=== PATIENT | male | born 1945 | race Caucasian/White ===

== ENCOUNTER 2018-10-14 17:06 | Inpatient (IN) ==
--- NOTE | 2018-10-14 17:48 | XRay Report ---
XR chest 1V portable CLINICAL HISTORY: Chest Pain chest pain COMPARISON STUDY: 03/05/2018 FINDINGS: Moderate cardiomegaly. Prominent pulmonary vasculature. Mild bibasilar parenchymal infiltra tive changes versus components of congestive failure. IMPRESSION: Congestive heart failure. Prominent basilar pulmonary vasculature versus basilar infiltr ative change. The above report was generated using voice recognition software. It may contain grammatical, syntax or spelling errors. Electronically signed by: Jose Deutsch M.D. 10/14/2018 5:46 PM
[2018-10-14] MEDS ORDERED: FUROSEMIDE 40 MG/4 ML VIAL IV STA (17:55)
[2018-10-14 18:17] LABS: iSTAT Creatinine 1.2 mg/dl (0.6-1.3); iSTAT Hemoglobin 9.2 g/dl (14.0-18.0); iSTAT Ionized Calcium 1.15 mmol/l (1.12-1.32); iSTAT Potassium 4.1 mEq/L (3.3-5.0)
[2018-10-14 18:27] LABS: Albumin Level 3.2 gm/dl (3.4-5.0); BUN Creatinine Ratio 16.9 (10-20); Calcium 8.4 mg/dl (8.5-10.1); Est GFR (African American) 67.6; Est GFR (Non-African American) 58.3; Magnesium 2.4 mg/dl (1.8-2.4); Potassium 3.9 mmol/L (3.5-5.1)
[2018-10-14 18:32] LABS: Bilirubin,Total 0.4 mg/dl (0.2-1); Globulin 3.1 gm/dl (2.5-4.0); Total Protein 6.3 gm/dl (6.4-8.2); Troponin I 0.025 ng/ml (0-0.045)
[2018-10-14 19:32] LABS: Base Excess VBG 9.3 mEq/L; HCO3 VBG 37 mmol/L; PCO2 VBG 71 mmHg (38-50); PO2 VBG 22 mmHg; pH VBG 7.34 (7.36-7.41)
[2018-10-14 19:33] LABS: Oxygen Saturation VBG < 60.0 %
[2018-10-14 19:36] LABS: Hematocrit (blood only) 30.7 % (42-52); Hemoglobin 8.2 g/dL (14.0-18.0); Mean Corpuscular Hgb Conc 26.7 g/dL (32-36); Mean Corpuscular Volume 101.3 fL (80-100); Mean Platelet Volume 10.3 fL (7.4-10.4); Platelet Count 347 K/uL (130-400); RDW Coefficient of Variation 15.4 % (11.5-14.5); RDW Standard Deviation 56.1 fL (36.4-46.3); Red Blood Count 3.03 M/uL (4.7-6.1); White Blood Count 9.65 K/uL (4.8-10.8)
[2018-10-14 19:36] LABS: Basophils # (auto) 0.03 K/uL (0-0.2); Basophils % (auto) 0.3 %; Eosinophils # (auto) 0.11 K/uL (0-0.5); Eosinophils % (auto) 0.9 %; Hematocrit (blood only) 33.1 % (42-52); Hemoglobin 8.8 g/dL (14.0-18.0); Hypochromasia Present; Immature Granulocytes # (auto) 0.03 K/uL (0.00-0.02); Immature Granulocytes % (auto) 0.3 %; Lymphocytes % (auto) 14.2 %; Mean Corpuscular Hgb Conc 26.6 g/dL (32-36); Mean Corpuscular Volume 103.4 fL (80-100); Monocytes # (auto) 1.17 K/uL (0.11-0.59); Monocytes % (auto) 9.8 %; Neutrophils # (auto) 8.96 K/uL (1.4-6.5); Neutrophils % (auto) 74.5 %; Ovalocytes 1+; Platelet Count 404 K/uL (130-400); Polychromasia 1+
[2018-10-14] MEDS ORDERED: ALBUT/IPRATROP 3MG/0.5MG NEB 3 ML VIAL NEB STA (19:52)
--- NOTE | 2018-10-14 20:04 | Emergency Department Note ---
Entered by Rodger Levine acting as a scribe for Ramsey Daigle MD History of Present Illness General Chief complaint: Illness Stated complaint: EDEMA LEGS Time Seen by Provider: 10/14/18 17:17 Source: patient and family History of Present Illness Onset (ago): week(s) 1 Location: lower extremity Pain Consistency: + other (worsening) Quality: + other (leg swelling) Exacerbated By: + other (shortness of breath worsened by lying down) Associated symptoms: + shortness of breath and + other (leg weeping); no fever/ chills and no nausea/vomiting The patient is a 73 year old white male with a history of COPD, lymphedema, HLD , HTN, and SVT who presents to the Emergency Room with complaints of worsened leg swelling for the past week. The patient reports chronic lymphedema but states that it has been increasing this week with some weeping. He denies changes in his chronic shortness of breath, although family notes that he has been sleeping in a recliner since he becomes increasingly short of breath when lying flat. He denies nausea, vomiting, fevers, chills, or urinary symptoms. He states that he chronically wears oxygen, but he is unsure if it is two or four liters. He states that he takes diuretics. Home Medications Home Medications Medication Instructions Recorded Confirmed Type albuterol sulfate 3 ml CONTINUOUS NEBULIZATION Q4H 10/14/18 10/14/18 History PRN aspirin [Aspir-81] 81 mg PO DAILY 10/14/18 10/14/18 History captopril 25 mg PO TID 10/14/18 10/14/18 History colchicine 0.6 mg PO DAILY 10/14/18 10/14/18 History diclofenac sodium 75 mg PO BID PRN 10/14/18 10/14/18 History ferrous sulfate 325 mg PO BID 10/14/18 10/14/18 History furosemide 20 mg PO BID 10/14/18 10/14/18 History guaifenesin 600 mg PO Q12H 10/14/18 10/14/18 History metoprolol tartrate 50 mg PO BID 10/14/18 10/14/18 History multivitamin [Multiple Vitamins] 1 tab PO DAILY 10/14/18 10/14/18 History omeprazole 40 mg PO DAILY 10/14/18 10/14/18 History prednisone 20 mg PO DAILY 10/14/18 10/14/18 History ranitidine HCl 150 mg PO BID 10/14/18 10/14/18 History tiotropium bromide [Spiriva with 1 cap INHALATION DAILY 10/14/18 10/14/18 History HandiHaler] tramadol 50 mg PO Q6H PRN 10/14/18 10/14/18 History Allergies Allergy/AdvReac Type Severity Reaction Status Date / Time No Known Allergies Allergy Verified 10/14/18 21:24 Past Med/Surg History Medical History Hypertension (Chronic) Dyslipidemia (Chronic) Paroxysmal SVT (supraventricular tachycardia) (Chronic) COPD (chronic obstructive pulmonary disease) (Chronic) Oxygen dependent (Chronic) Lymphedema (Chronic) CKD (chronic kidney disease), stage III (Chronic) CHRISTIE (obstructive sleep apnea) (Chronic) Iron deficiency anemia (Chronic) Surgical History H/O left knee surgery (Chronic) H/O right knee surgery (Chronic) History of colon resection (Chronic) "Due to diverticulitis" History of cholecystectomy (Chronic) Family History Other Family history non-contributory Social History marital status: Current Living Situation: Spouse Other Information That Helps Us Care for You: No Feels Safe at Home: Yes Safety Concerns: Feels Safe At This Time Smoking Status: Former smoker Do You Dip or Chew Tobacco: No Smoking End Date: about 2013 Hx Alcohol Use: No Hx Substance Use: No Beliefs That Will Affect Care: None Communication Ability: Effective Review of Systems See HPI for pertinent positives & negatives. and A total of 10 systems reviewed and were otherwise negative Physical Exam Vital Signs Vital Signs - 24 hr 10/15/18 01:51 10/15/18 01:52 10/15/18 03:00 Temperature 36.7 C Temperature Source Oral Pulse Rate - Lying Pulse Rate 79 Pulse Rate [Apical] 79 74 Respiratory Rate 16 16 20 Respiratory Effort / Characteristics Non-Labored Spontaneous Non-Labored Spontaneous Respiratory Depth Normal Respiratory Pattern Regular Blood Pressure - Lying Blood Pressure [Left Arm] 156/82 H Blood Pressure [Right Arm] Blood Pressure Mean [Left Arm] 106 Blood Pressure Mean [Right Arm] Blood Pressure Position [Left Arm] Blood Pressure Position [Right Arm] Pulse Oximetry 94 94 96 Pulse Oximetry [Post Treatment/Recovery] Pulse Oximetry [Right [place]] Pulse Oximetry [Start of Treatment] Oxygen Delivery Method CPAP BiPAP Oxygen Delivery Method [Right [place]] Oxygen Flow Rate 6 6 Oxygen Flow Rate [Post Treatment/Recovery] Oxygen Flow Rate [Right [place]] Oxygen Flow Rate [Start of Treatment] 10/15/18 06:54 10/15/18 07:39 10/15/18 07:42 Temperature 37.0 C Temperature Source Oral Pulse Rate - Lying Pulse Rate 92 H Pulse Rate [Apical] 72 82 Respiratory Rate 18 19 Respiratory Effort / Characteristics Spontaneous Respiratory Depth Respiratory Pattern Blood Pressure - Lying Blood Pressure [Left Arm] 158/125 H Blood Pressure [Right Arm] Blood Pressure Mean [Left Arm] 136 Blood Pressure Mean [Right Arm] Blood Pressure Position [Left Arm] Lying Blood Pressure Position [Right Arm] Pulse Oximetry 99 99 Pulse Oximetry [Post Treatment/Recovery] Pulse Oximetry [Right [place]] Pulse Oximetry [Start of Treatment] Oxygen Delivery Method Nasal Cannula Oxygen Delivery Method [Right [place]] Oxygen Flow Rate 4 4.0 Oxygen Flow Rate [Post Treatment/Recovery] Oxygen Flow Rate [Right [place]] Oxygen Flow Rate [Start of Treatment] 10/15/18 11:36 10/15/18 11:48 10/15/18 14:23 Temperature Temperature Source Pulse Rate - Lying 94 H Pulse Rate Pulse Rate [Apical] 66 74 Respiratory Rate 17 18 Respiratory Effort / Characteristics Non-Labored Spontaneous Respiratory Depth Respiratory Pattern Blood Pressure - Lying 160/82 H Blood Pressure [Left Arm] Blood Pressure [Right Arm] 116/61 Blood Pressure Mean [Left Arm] Blood Pressure Mean [Right Arm] 79 Blood Pressure Position [Left Arm] Blood Pressure Position [Right Arm] Lying Pulse Oximetry 96 100 Pulse Oximetry [Post Treatment/Recovery] 98 Pulse Oximetry [Right [place]] Pulse Oximetry [Start of Treatment] 98 Oxygen Delivery Method Nasal Cannula Nasal Cannula Oxygen Delivery Method [Right [place]] Oxygen Flow Rate 4.0 2 Oxygen Flow Rate [Post Treatment/Recovery] 4 Oxygen Flow Rate [Right [place]] Oxygen Flow Rate [Start of Treatment] 4 10/15/18 15:23 10/15/18 15:33 10/15/18 16:00 Temperature 37.1 C Temperature Source Oral Pulse Rate - Lying Pulse Rate Pulse Rate [Apical] 80 Respiratory Rate 26 H Respiratory Effort / Characteristics Respiratory Depth Respiratory Pattern Blood Pressure - Lying Blood Pressure [Left Arm] Blood Pressure [Right Arm] 131/73 Blood Pressure Mean [Left Arm] Blood Pressure Mean [Right Arm] 92 Blood Pressure Position [Left Arm] Blood Pressure Position [Right Arm] Lying Pulse Oximetry 92 Pulse Oximetry [Post Treatment/Recovery] Pulse Oximetry [Right [place]] 91 Pulse Oximetry [Start of Treatment] Oxygen Delivery Method Nasal Cannula Oxygen Delivery Method [Right [place]] Nasal Cannula Oxygen Flow Rate 4.0 Oxygen Flow Rate [Post Treatment/Recovery] Oxygen Flow Rate [Right [place]] 4 Oxygen Flow Rate [Start of Treatment] 10/15/18 16:22 10/15/18 19:13 10/15/18 19:17 Temperature 36.7 C Temperature Source Oral Pulse Rate - Lying Pulse Rate 75 Pulse Rate [Apical] 78 80 Respiratory Rate 24 20 Respiratory Effort / Characteristics Non-Labored Spontaneous Respiratory Depth Respiratory Pattern Blood Pressure - Lying Blood Pressure [Left Arm] Blood Pressure [Right Arm] 121/58 L Blood Pressure Mean [Left Arm] Blood Pressure Mean [Right Arm] 79 Blood Pressure Position [Left Arm] Blood Pressure Position [Right Arm] Lying Pulse Oximetry 96 93 Pulse Oximetry [Post Treatment/Recovery] Pulse Oximetry [Right [place]] Pulse Oximetry [Start of Treatment] Oxygen Delivery Method Nasal Cannula Nasal Cannula Oxygen Delivery Method [Right [place]] Oxygen Flow Rate 4 4 Oxygen Flow Rate [Post Treatment/Recovery] Oxygen Flow Rate [Right [place]] Oxygen Flow Rate [Start of Treatment] 10/15/18 21:00 10/15/18 22:27 10/15/18 23:10 Temperature 37.1 C Temperature Source Oral Pulse Rate - Lying Pulse Rate 79 Pulse Rate [Apical] 75 Respiratory Rate 22 22 Respiratory Effort / Characteristics Non-Labored Spontaneous Non-Labored Spontaneous Respiratory Depth Normal Respiratory Pattern Regular Blood Pressure - Lying Blood Pressure [Left Arm] Blood Pressure [Right Arm] 118/69 Blood Pressure Mean [Left Arm] Blood Pressure Mean [Right Arm] 85 Blood Pressure Position [Left Arm] Blood Pressure Position [Right Arm] Pulse Oximetry 98 99 Pulse Oximetry [Post Treatment/Recovery] Pulse Oximetry [Right [place]] Pulse Oximetry [Start of Treatment] Oxygen Delivery Method Nasal Cannula CPAP BiPAP Oxygen Delivery Method [Right [place]] Oxygen Flow Rate 4 4 Oxygen Flow Rate [Post Treatment/Recovery] Oxygen Flow Rate [Right [place]] Oxygen Flow Rate [Start of Treatment] GENERAL: No apparent distress, nasal cannula in place. EYE EXAM: Normal conjunctiva. PERRL, no anisocoria and EOM's grossly intact w/o pain. OROPHARYNX: No exudate, posterior pharynx is clear, no tonsillar/uvular deviation or swelling. NECK: Supple, no nuchal rigidity, no adenopathy, non-tender. No signs of meningismus. LUNGS: Sonorous breath sounds noted. Normal chest wall mechanics. HEART: NSR, no MRG. ABDOMEN: Abdomen soft, non-tender, normo-active bowel sounds, no masses, no rebound or guarding. BACK: No CVA TTP. SKIN: No rashes and no bruising. UPPER EXTREMITIES: Upper extremities are grossly normal. LOWER EXTREMITIES: Significant b/l edema, several open sores over the medial aspect of the left lower extremity, foul smelling, no purulent drainage noted, no warmth. No calf pain. NEURO EXAM: Cranial nerves II-XII grossly intact, normal speech, 5/5 strength in b/l upper and lower extremities, moves all 4 extremities without issue on command. Course 172: Past medical records reviewed. The patient was evaluated in room B5, and a complete history and physical examination were performed. 1946: I consulted Dr. Juan Abreu Hospitalist. He will reevaluate the patient for hospitalization. 1950: I updated the patient and family on the current plan and results. Reevaluation(s) Reevaluation #1: I consulted Dr. Juan Abreu Hospitalist. He will reevaluate the patient for hospitalization. Time: :46 Consultations Time: :46 Administered Medications Aspirin (Ecotrin Ectab) 81 mg PO DAILY [facility] Stop: 11/14/18 08:59 Last Admin: 10/15/18 09:34 Dose: 81 mg Captopril (Capoten) 12.5 mg PO TID [facility] Stop: 11/14/18 20:59 Last Admin: 10/15/18 20:27 Dose: 12.5 mg Colchicine (Colcrys) 0.6 mg PO DAILY [facility] Stop: 11/14/18 08:59 Last Admin: 10/15/18 09:34 Dose: 0.6 mg Doxycycline Hyclate (Vibramycin) 100 mg PO BID [facility] Stop: 10/24/18 21:59 Last Admin: 10/15/18 20:26 Dose: 100 mg Admin: 10/15/18 09:36 Dose: 100 mg Admin: 10/15/18 01:01 Dose: 100 mg Enoxaparin Sodium (Lovenox) 40 mg SQ QAM [facility] Stop: 11/14/18 08:59 Last Admin: 10/15/18 09:35 Dose: 40 mg Ferrous Sulfate (Feosol) 325 mg PO BID [facility] Stop: 11/14/18 08:59 Last Admin: 10/15/18 20:26 Dose: 325 mg Admin: 10/15/18 09:34 Dose: 325 mg Furosemide 60 mg/ Syringe 6 mls @ 4 mls/min IV BID [facility] Stop: 11/14/18 11:59 Last Admin: 10/15/18 20:25 Dose: 4 mls/min Admin: 10/15/18 12:26 Dose: 4 mls/min Ioversol (Optiray 320 100ml) 93 ml IV ONCE PRN PRN Reason: Interaction Checking Stop: 10/19/18 13:36 Last Admin: 10/15/18 13:40 Dose: 93 ml Ipratropium [place] (Atrovent 0.02% 0.5mg/2.5ml) 0.5 mg INH Q6R [facility] Stop: 11/14/18 01:59 Last Admin: 10/15/18 19:13 Dose: 0.5 mg Admin: 10/15/18 14:23 Dose: 0.5 mg Admin: 10/15/18 06:54 Dose: 0.5 mg Admin: 10/15/18 01:50 Dose: 0.5 mg Levalbuterol HCl (Xopenex 1.25mg/0.5ml Neb) 1.25 mg INH Q6R [facility] Stop: 11/14/18 01:59 Last Admin: 10/15/18 19:13 Dose: 1.25 mg Admin: 10/15/18 14:23 Dose: 1.25 mg Admin: 10/15/18 06:54 Dose: 1.25 mg Admin: 10/15/18 01:49 Dose: 1.25 mg Metoprolol Succinate (Toprol Xl) 50 mg PO BID [facility] Stop: 11/14/18 20:59 Last Admin: 10/15/18 20:26 Dose: 50 mg Multivitamins (Multivitamin Tab) 1 tab PO DAILY [facility] Stop: 11/14/18 08:59 Last Admin: 10/15/18 09:35 Dose: 1 tab Pantoprazole Sodium (Protonix) 40 mg PO DAILY [facility] Stop: 11/14/18 08:59 Last Admin: 10/15/18 09:36 Dose: 40 mg Prednisone (Prednisone) 20 mg PO DAILY [facility] Stop: 11/14/18 08:59 Last Admin: 10/15/18 09:35 Dose: 20 mg Ranitidine HCl (Zantac) 150 mg PO BID [facility] Stop: 11/14/18 08:59 Last Admin: 10/15/18 20:28 Dose: 150 mg Admin: 10/15/18 09:36 Dose: 150 mg Spironolactone (Aldactone) 12.5 mg PO DAILY [facility] Stop: 11/14/18 16:29 Last Admin: 10/15/18 16:48 Dose: 12.5 mg Discontinued Medications Albuterol (Duoneb) 3 ml NEB NOW STA Stop: 10/14/18 19:53 Last Admin: 10/14/18 20:30 Dose: 3 ml Captopril (Capoten) 25 mg PO TID [facility] Stop: 11/14/18 08:59 Last Admin: 10/15/18 15:20 Dose: 25 mg Admin: 10/15/18 09:34 Dose: 25 mg Furosemide (Lasix) 40 mg IV NOW STA Stop: 10/14/18 17:56 Last Admin: 10/14/18 20:00 Dose: 40 mg Furosemide 40 mg/ Syringe 4 mls @ 4 mls/min IV [id number] [facility] Stop: 11/14/18 08:59 Last Admin: 10/15/18 09:35 Dose: 4 mls/min Metoprolol Tartrate (Lopressor) 50 mg PO BID [facility] Stop: 11/13/18 23:35 Last Admin: 10/15/18 09:35 Dose: 50 mg Admin: 10/15/18 01:02 Dose: 50 mg Perflutren Lipid Microsphere (Definity) 2 ml IV ONCE ONE Stop: 10/15/18 07:24 Last Admin: 10/15/18 07:25 Dose: 2 ml Medical Decision Making Medical Records Attestation: I reviewed the patient's medical records. Home Medications Current Medication List: was personally reviewed by me Laboratory Data Attestation: I reviewed the patient's lab results. Result diagrams: 10/15/18 05:43 10/15/18 05:43 Lab Results 10/14/18 10/14/18 10/14/18 Range/Units 17:00 17:00 17:00 WBC 12.00 H (4.8-10.8) K/uL RBC 3.20 L (4.7-6.1) M/uL Hgb 8.8 L (14.0-18.0) g/dL POC Hgb (14.0-18.0) g/dl Hct 33.1 L (42-52) % POC Hct (42-52) % MCV 103.4 H (80-100) fL MCH 27.5 (25-34) pg MCHC 26.6 L (32-36) g/dL RDW Std Deviation (36.4-46.3) fL RDW Coeff of Kate (11.5-14.5) % Plt Count 404 H (130-400) K/uL MPV (7.4-10.4) fL Immature Gran % (Auto) 0.3 % Neut % (Auto) 74.5 % Lymph % (Auto) 14.2 % [place] % (Auto) 9.8 % Eos % (Auto) 0.9 % Baso % (Auto) 0.3 % Immature Gran # (Auto) 0.03 H (0.00-0.02) K/uL Neut # (Auto) 8.96 H (1.4-6.5) K/uL Lymph # (Auto) 1.70 (1.2-3.4) K/uL [place] # (Auto) 1.17 H (0.11-0.59) K/uL Eos # (Auto) 0.11 (0-0.5) K/uL Baso # (Auto) 0.03 (0-0.2) K/uL Polychromasia 1+ Hypochromasia Present Anisocytosis Ovalocytes 1+ Stomatocytes PT (9.0-12.0) Seconds INR (0.9-1.1) APTT 25.2 (21.0-31.0) Seconds PTT Ratio 1.0 VBG pH (7.36-7.41) VBG pCO2 (38-50) mmHg VBG pO2 mmHg VBG HCO3 mmol/L VBG O2 Saturation % VBG Base Excess mEq/L Barometric Pressure mm/Hg POC Sodium (135-144) mEq/L Sodium 141 (136-145) mmol/L POC Potassium (3.3-5.0) mEq/L Potassium 3.9 (3.5-5.1) mmol/L POC Chloride (101-112) mEq/L Chloride 102 (98-107) mmol/L Carbon Dioxide 35 H (21-32) mmol/L POC Total CO2 (24-31) mEq/l Anion Gap 4.0 (3-11) POC Anion Gap (16-25) mmol/L POC BUN (7-18) mg/dl BUN 21 H (7-18) mg/dl Creatinine 1.23 (0.6-1.4) mg/dl POC Creatinine (0.6-1.3) mg/dl Est Cr Clr Drug Dosing 76.0 ml/min Est GFR ( Amer) 67.6 Est GFR (Non-Af Amer) 58.3 BUN/Creatinine Ratio 16.9 (10-20) Glucose 111 H (70-99) mg/dl POC Glucose (other) (70-99) mg/dl Estimat Average Glucose mg/dl Hemoglobin A1c (4.5-5.6) % Calcium 8.4 L (8.5-10.1) mg/dl POC Ioniz Calcium Deric (1.12-1.32) mmol/l Magnesium 2.4 (1.8-2.4) mg/dl Total Bilirubin 0.4 (0.2-1) mg/dl AST 12 L (15-37) U/L ALT 14 (12-78) U/L Alkaline Phosphatase 78 (45-117) U/L Troponin I 0.025 (0-0.045) ng/ml NT-Pro-B Natriuret Pep 2156 H (0-900) pg/ml Total Protein 6.3 L (6.4-8.2) gm/dl Albumin 3.2 L (3.4-5.0) gm/dl Globulin 3.1 (2.5-4.0) gm/dl Albumin/Globulin Ratio 1.0 (0.9-2) Lipase 112 (73-393) U/L TSH 1.810 (0.300-4.500) uIu/ml Urine Color Urine Appearance (Clear) Urine pH (4.5-7.5) Ur Specific [place] (1.000-1.030) Urine Protein (Negative) Urine Glucose (UA) (Negative) Urine Ketones (Negative) Urine Blood (Negative) Urine Nitrite (Negative) Urine Bilirubin (Negative) Urine Urobilinogen (Negative) Ur Leukocyte Esterase (Negative) Hepatitis C Ab Screen (Neg) 10/14/18 10/14/18 10/14/18 Range/Units 17:00 17:53 18:37 WBC (4.8-10.8) K/uL RBC (4.7-6.1) M/uL Hgb (14.0-18.0) g/dL POC Hgb 9.2 L (14.0-18.0) g/dl Hct (42-52) % POC Hct 27 L (42-52) % MCV (80-100) fL MCH (25-34) pg MCHC (32-36) g/dL RDW Std Deviation (36.4-46.3) fL RDW Coeff of Kate (11.5-14.5) % Plt Count (130-400) K/uL MPV (7.4-10.4) fL Immature Gran % (Auto) % Neut % (Auto) % Lymph % (Auto) % [place] % (Auto) % Eos % (Auto) % Baso % (Auto) % Immature Gran # (Auto) (0.00-0.02) K/uL Neut # (Auto) (1.4-6.5) K/uL Lymph # (Auto) (1.2-3.4) K/uL [place] # (Auto) (0.11-0.59) K/uL Eos # (Auto) (0-0.5) K/uL Baso # (Auto) (0-0.2) K/uL Polychromasia Hypochromasia Anisocytosis Ovalocytes Stomatocytes PT (9.0-12.0) Seconds INR (0.9-1.1) APTT (21.0-31.0) Seconds PTT Ratio VBG pH 7.34 L (7.36-7.41) VBG pCO2 71 H (38-50) mmHg VBG pO2 22 mmHg VBG HCO3 37 mmol/L VBG O2 Saturation < 60.0 % VBG Base Excess 9.3 mEq/L Barometric Pressure 730.1 mm/Hg POC Sodium 143 (135-144) mEq/L Sodium (136-145) mmol/L POC Potassium 4.1 (3.3-5.0) mEq/L Potassium (3.5-5.1) mmol/L POC Chloride 97 L (101-112) mEq/L Chloride (98-107) mmol/L Carbon Dioxide (21-32) mmol/L POC Total CO2 34 H (24-31) mEq/l Anion Gap (3-11) POC Anion Gap 17.0 (16-25) mmol/L POC BUN 21 H (7-18) mg/dl BUN (7-18) mg/dl Creatinine (0.6-1.4) mg/dl POC Creatinine 1.2 (0.6-1.3) mg/dl Est Cr Clr Drug Dosing ml/min Est GFR ( Amer) Est GFR (Non-Af Amer) BUN/Creatinine Ratio (10-20) Glucose (70-99) mg/dl POC Glucose (other) 106 H (70-99) mg/dl Estimat Average Glucose mg/dl Hemoglobin A1c (4.5-5.6) % Calcium (8.5-10.1) mg/dl POC Ioniz Calcium Deric 1.15 (1.12-1.32) mmol/l Magnesium (1.8-2.4) mg/dl Total Bilirubin (0.2-1) mg/dl AST (15-37) U/L ALT (12-78) U/L Alkaline Phosphatase (45-117) U/L Troponin I (0-0.045) ng/ml NT-Pro-B Natriuret Pep (0-900) pg/ml Total Protein (6.4-8.2) gm/dl Albumin (3.4-5.0) gm/dl Globulin (2.5-4.0) gm/dl Albumin/Globulin Ratio (0.9-2) Lipase (73-393) U/L TSH (0.300-4.500) uIu/ml Urine Color Urine Appearance (Clear) Urine pH (4.5-7.5) Ur Specific [place] (1.000-1.030) Urine Protein (Negative) Urine Glucose (UA) (Negative) Urine Ketones (Negative) Urine Blood (Negative) Urine Nitrite (Negative) Urine Bilirubin (Negative) Urine Urobilinogen (Negative) Ur Leukocyte Esterase (Negative) Hepatitis C Ab Screen Neg (Neg) 10/14/18 10/14/18 10/15/18 Range/Units 19:16 20:00 05:43 WBC 9.65 11.81 H (4.8-10.8) K/uL RBC 3.03 L 3.01 L (4.7-6.1) M/uL Hgb 8.2 L 8.2 L (14.0-18.0) g/dL POC Hgb (14.0-18.0) g/dl Hct 30.7 L 30.5 L (42-52) % POC Hct (42-52) % MCV 101.3 H 101.3 H (80-100) fL MCH 27.1 27.2 (25-34) pg MCHC 26.7 L 26.9 L (32-36) g/dL RDW Std Deviation 56.1 H 55.7 H (36.4-46.3) fL RDW Coeff of Kate 15.4 H 15.4 H (11.5-14.5) % Plt Count 347 313 (130-400) K/uL MPV 10.3 10.7 H (7.4-10.4) fL Immature Gran % (Auto) 0.3 % Neut % (Auto) 83.5 % Lymph % (Auto) 7.9 % [place] % (Auto) 8.1 % Eos % (Auto) 0.0 % Baso % (Auto) 0.2 % Immature Gran # (Auto) 0.04 H (0.00-0.02) K/uL Neut # (Auto) 9.86 H (1.4-6.5) K/uL Lymph # (Auto) 0.93 L (1.2-3.4) K/uL [place] # (Auto) 0.96 H (0.11-0.59) K/uL Eos # (Auto) 0.00 (0-0.5) K/uL Baso # (Auto) 0.02 (0-0.2) K/uL Polychromasia 1+ Hypochromasia Anisocytosis Present Ovalocytes Stomatocytes 1+ PT (9.0-12.0) Seconds INR (0.9-1.1) APTT (21.0-31.0) Seconds PTT Ratio VBG pH (7.36-7.41) VBG pCO2 (38-50) mmHg VBG pO2 mmHg VBG HCO3 mmol/L VBG O2 Saturation % VBG Base Excess mEq/L Barometric Pressure mm/Hg POC Sodium (135-144) mEq/L Sodium (136-145) mmol/L POC Potassium (3.3-5.0) mEq/L Potassium (3.5-5.1) mmol/L POC Chloride (101-112) mEq/L Chloride (98-107) mmol/L Carbon Dioxide (21-32) mmol/L POC Total CO2 (24-31) mEq/l Anion Gap (3-11) POC Anion Gap (16-25) mmol/L POC BUN (7-18) mg/dl BUN (7-18) mg/dl Creatinine (0.6-1.4) mg/dl POC Creatinine (0.6-1.3) mg/dl Est Cr Clr Drug Dosing ml/min Est GFR ( Amer) Est GFR (Non-Af Amer) BUN/Creatinine Ratio (10-20) Glucose (70-99) mg/dl POC Glucose (other) (70-99) mg/dl Estimat Average Glucose mg/dl Hemoglobin A1c (4.5-5.6) % Calcium (8.5-10.1) mg/dl POC Ioniz Calcium Deric (1.12-1.32) mmol/l Magnesium (1.8-2.4) mg/dl Total Bilirubin (0.2-1) mg/dl AST (15-37) U/L ALT (12-78) U/L Alkaline Phosphatase (45-117) U/L Troponin I (0-0.045) ng/ml NT-Pro-B Natriuret Pep (0-900) pg/ml Total Protein (6.4-8.2) gm/dl Albumin (3.4-5.0) gm/dl Globulin (2.5-4.0) gm/dl Albumin/Globulin Ratio (0.9-2) Lipase (73-393) U/L TSH (0.300-4.500) uIu/ml Urine Color Dark Yellow Urine Appearance Clear (Clear) Urine pH 5.5 (4.5-7.5) Ur Specific [place] 1.019 (1.000-1.030) Urine Protein Negative (Negative) Urine Glucose (UA) Negative (Negative) Urine Ketones Trace H (Negative) Urine Blood Negative (Negative) Urine Nitrite Negative (Negative) Urine Bilirubin Negative (Negative) Urine Urobilinogen Negative (Negative) Ur Leukocyte Esterase Negative (Negative) Hepatitis C Ab Screen (Neg) 10/15/18 10/15/18 10/15/18 Range/Units 05:43 05:43 05:43 WBC (4.8-10.8) K/uL RBC (4.7-6.1) M/uL Hgb (14.0-18.0) g/dL POC Hgb (14.0-18.0) g/dl Hct (42-52) % POC Hct (42-52) % MCV (80-100) fL MCH (25-34) pg MCHC (32-36) g/dL RDW Std Deviation (36.4-46.3) fL RDW Coeff of Kate (11.5-14.5) % Plt Count (130-400) K/uL MPV (7.4-10.4) fL Immature Gran % (Auto) % Neut % (Auto) % Lymph % (Auto) % [place] % (Auto) % Eos % (Auto) % Baso % (Auto) % Immature Gran # (Auto) (0.00-0.02) K/uL Neut # (Auto) (1.4-6.5) K/uL Lymph # (Auto) (1.2-3.4) K/uL [place] # (Auto) (0.11-0.59) K/uL Eos # (Auto) (0-0.5) K/uL Baso # (Auto) (0-0.2) K/uL Polychromasia Hypochromasia Anisocytosis Ovalocytes Stomatocytes PT 10.7 (9.0-12.0) Seconds INR 1.1 (0.9-1.1) APTT 25.0 (21.0-31.0) Seconds PTT Ratio 1.0 VBG pH (7.36-7.41) VBG pCO2 (38-50) mmHg VBG pO2 mmHg VBG HCO3 mmol/L VBG O2 Saturation % VBG Base Excess mEq/L Barometric Pressure mm/Hg POC Sodium (135-144) mEq/L Sodium 142 (136-145) mmol/L POC Potassium (3.3-5.0) mEq/L Potassium 4.2 (3.5-5.1) mmol/L POC Chloride (101-112) mEq/L Chloride 102 (98-107) mmol/L Carbon Dioxide 36 H (21-32) mmol/L POC Total CO2 (24-31) mEq/l Anion Gap 4.0 (3-11) POC Anion Gap (16-25) mmol/L POC BUN (7-18) mg/dl BUN 22 H (7-18) mg/dl Creatinine 1.17 (0.6-1.4) mg/dl POC Creatinine (0.6-1.3) mg/dl Est Cr Clr Drug Dosing 100.4 ml/min Est GFR ( Amer) 71.8 Est GFR (Non-Af Amer) 61.9 BUN/Creatinine Ratio 19.1 (10-20) Glucose 145 H (70-99) mg/dl POC Glucose (other) (70-99) mg/dl Estimat Average Glucose mg/dl Hemoglobin A1c (4.5-5.6) % Calcium 8.5 (8.5-10.1) mg/dl POC Ioniz Calcium Deric (1.12-1.32) mmol/l Magnesium (1.8-2.4) mg/dl Total Bilirubin (0.2-1) mg/dl AST (15-37) U/L ALT (12-78) U/L Alkaline Phosphatase (45-117) U/L Troponin I 0.025 (0-0.045) ng/ml NT-Pro-B Natriuret Pep (0-900) pg/ml Total Protein (6.4-8.2) gm/dl Albumin (3.4-5.0) gm/dl Globulin (2.5-4.0) gm/dl Albumin/Globulin Ratio (0.9-2) Lipase (73-393) U/L TSH (0.300-4.500) uIu/ml Urine Color Urine Appearance (Clear) Urine pH (4.5-7.5) Ur Specific [place] (1.000-1.030) Urine Protein (Negative) Urine Glucose (UA) (Negative) Urine Ketones (Negative) Urine Blood (Negative) Urine Nitrite (Negative) Urine Bilirubin (Negative) Urine Urobilinogen (Negative) Ur Leukocyte Esterase (Negative) Hepatitis C Ab Screen (Neg) 10/15/18 Range/Units 05:43 WBC (4.8-10.8) K/uL RBC (4.7-6.1) M/uL Hgb (14.0-18.0) g/dL POC Hgb (14.0-18.0) g/dl Hct (42-52) % POC Hct (42-52) % MCV (80-100) fL MCH (25-34) pg MCHC (32-36) g/dL RDW Std Deviation (36.4-46.3) fL RDW Coeff of Kate (11.5-14.5) % Plt Count (130-400) K/uL MPV (7.4-10.4) fL Immature Gran % (Auto) % Neut % (Auto) % Lymph % (Auto) % [place] % (Auto) % Eos % (Auto) % Baso % (Auto) % Immature Gran # (Auto) (0.00-0.02) K/uL Neut # (Auto) (1.4-6.5) K/uL Lymph # (Auto) (1.2-3.4) K/uL [place] # (Auto) (0.11-0.59) K/uL Eos # (Auto) (0-0.5) K/uL Baso # (Auto) (0-0.2) K/uL Polychromasia Hypochromasia Anisocytosis Ovalocytes Stomatocytes PT (9.0-12.0) Seconds INR (0.9-1.1) APTT (21.0-31.0) Seconds PTT Ratio VBG pH (7.36-7.41) VBG pCO2 (38-50) mmHg VBG pO2 mmHg VBG HCO3 mmol/L VBG O2 Saturation % VBG Base Excess mEq/L Barometric Pressure mm/Hg POC Sodium (135-144) mEq/L Sodium (136-145) mmol/L POC Potassium (3.3-5.0) mEq/L Potassium (3.5-5.1) mmol/L POC Chloride (101-112) mEq/L Chloride (98-107) mmol/L Carbon Dioxide (21-32) mmol/L POC Total CO2 (24-31) mEq/l Anion Gap (3-11) POC Anion Gap (16-25) mmol/L POC BUN (7-18) mg/dl BUN (7-18) mg/dl Creatinine (0.6-1.4) mg/dl POC Creatinine (0.6-1.3) mg/dl Est Cr Clr Drug Dosing ml/min Est GFR ( Amer) Est GFR (Non-Af Amer) BUN/Creatinine Ratio (10-20) Glucose (70-99) mg/dl POC Glucose (other) (70-99) mg/dl Estimat Average Glucose 88 mg/dl Hemoglobin A1c 4.7 (4.5-5.6) % Calcium (8.5-10.1) mg/dl POC Ioniz Calcium Deric (1.12-1.32) mmol/l Magnesium (1.8-2.4) mg/dl Total Bilirubin (0.2-1) mg/dl AST (15-37) U/L ALT (12-78) U/L Alkaline Phosphatase (45-117) U/L Troponin I (0-0.045) ng/ml NT-Pro-B Natriuret Pep (0-900) pg/ml Total Protein (6.4-8.2) gm/dl Albumin (3.4-5.0) gm/dl Globulin (2.5-4.0) gm/dl Albumin/Globulin Ratio (0.9-2) Lipase (73-393) U/L TSH (0.300-4.500) uIu/ml Urine Color Urine Appearance (Clear) Urine pH (4.5-7.5) Ur Specific [place] (1.000-1.030) Urine Protein (Negative) Urine Glucose (UA) (Negative) Urine Ketones (Negative) Urine Blood (Negative) Urine Nitrite (Negative) Urine Bilirubin (Negative) Urine Urobilinogen (Negative) Ur Leukocyte Esterase (Negative) Hepatitis C Ab Screen (Neg) Imaging Data Radiologist's Impression: Radiology results as stated below per my review and the radiologist's interpretation: XR chest 1V portable CLINICAL HISTORY: Chest Pain chest pain COMPARISON STUDY: 03/05/2018 FINDINGS: Moderate cardiomegaly. Prominent pulmonary vasculature. Mild bibasilar parenchymal infiltrative changes versus components of congestive failure. IMPRESSION: Congestive heart failure. Prominent basilar pulmonary vasculature versus basilar infiltrative change. The above report was generated using voice recognition software. It may contain grammatical, syntax or spelling errors. Electronically signed by: Jose Deutsch M.D. 10/14/2018 5:46 PM ECG Data Attestation: I personally reviewed and interpreted this ECG as follows: Indication: SOB/dyspnea Rate (beats per minute): 72 Rhythm: normal sinus Findings: + other (wide QRS), + Q waves (lead III) and + RBBB Comparison ECG Date: from (02/25/18) Change: the following changes noted (rate is now greatly improved, morphology is unchanged) Blood Pressure Blood Pressure Findings: Elevated blood pressure Blood Pressure Disposition: further management by hospitalist MDM Narrative Prior records/ancillary studies reviewed. Triage nursing notes reviewed. The patient is a 73 year old white male with a history of COPD, lymphedema, HLD , HTN, and SVT who presents to the Emergency Room with complaints of worsened leg swelling for the past week. Differential diagnosis: Etiologies such as lymphedema, CHF, infections, reactive airway disease, pneumonia, pneumothorax, COPD, CHF, cardiac ischemia, pulmonary embolism, musculoskeletal, gastrointestinal, as well as others were entertained. Patient was seen and evaluated the bedside. The patient reportedly was having worsening lower extremity swelling. The patient does use anywhere from 2-4 L of oxygen at the bedside. The patient has noted that he has had some rupture to what he described as some blisters to the left lower extremity. There is some foul-smelling drainage but it does not appear purulent. No associated warmth to the area. No fluctuance. Patient did a blood work completed along with EKG troponin, BNP, chest x-ray. The patient also did have a wound culture completed. Patient did have an elevated BNP. The patient likely does have an element of volume overload. The patient also has had very significant weight gain. The patient would not be a suitable outpatient candidate is the patient's primary caregiver is the patient's who is currently being admitted to the hospital. I did speak with the on-call hospitalist who agreed to further evaluate treat the patient. Impression & Plan CHF exacerbation Discharge Plan Visit Data *Final* Discharge Date/Time: 10/14/18 23:10 Chief Complaint: Illness Stated Complaint: EDEMA LEGS ED Provider: Ramsey Daigle Discharge Problem: CHF exacerbation Patient Disposition: Admitted As Inpatient Discharge Instructions Interventions: ED Discharge Assessment Last Done: 10/14/18 23:10 The scribe's documentation has been prepared under my direction and personally reviewed by me in its entirety. I confirm that the note above accurately reflects all work, treatment, procedures, and medical decision making performed by me.
[2018-10-14 20:36] LABS: Appearance Urine Clear (Clear); Bilirubin Urine Negative (Negative); Blood Urine Negative (Negative); Color Urine Dark Yellow; Glucose Urine UA Negative (Negative); Ketones Urine Trace (Negative); Leukocyte Esterase Urine Negative (Negative); Nitrite Urine Negative (Negative); Protein Urine Negative (Negative); Specific Gravity Urine 1.019 (1.000-1.030); Urobilinogen Urine Negative (Negative); pH Urine 5.5 (4.5-7.5)
[2018-10-14 20:42] LABS: Partial Thromboplastin Time 25.2 Seconds (21.0-31.0)
--- NOTE | 2018-10-14 21:52 | History & Physical Report ---
Date of Service October 14, 2018 Assessment & Plan (1) Acute hypoxemic respiratory failure: Acute on chronic Secondary to decompensated heart failure hx diastolic dysfunction (EF 65-70% TTE 2018) 40 kg weight gain following recent confinement from March 2018 Uncontrolled BP, dietary indiscretion, NSAID intake, home steroid Rx contributory to fluid retention chronic respiratory failure secondary to steroid dependent COPD on home O2 CHRISTIE on CPAP Chronic lung disease not in acute exacerbation past tobacco abuse LE cellulitis in the setting of chronic lymphedema Possible sepsis Rule out DVT Steroid-induced hyperglycemia Rule out DM Functional disability chronic anemia, hemoglobin at baseline PCU Supplemental O2 Diuretic Rx Strict IOs, daily weights, CHF education Update TTE, Cardiology consult RE CHF Titrate antihypertensive meds Consider decreasing daily prednisone dose for COPD Hold home NSAIDs Cultures, Doxycycline, local measures for LE cellulitis LE venous Doppler ro DVT Check hemoglobin A1c PT OT eval DVT prophylaxis. Lovenox subcu DNR Patient stepdaughter requesting updates from providers. Ms. Ina Mullins, contact #[phone]. History of Present Illness Chief Complaint: Shortness of breath, leg swelling Primary Care Provider: Mckinley Zelaya History obtained from patient, family, and records. Medical history significant for chronic diastolic heart failure as per PCP records (EF 65-70% TTE 2018), chronic respiratory failure secondary to steroid dependent COPD on home O2, CHRISTIE on CPAP, past tobacco abuse, hypertension, PSVT as per records, chronic lymphedema, chronic anemia baseline hemoglobin of 8. Recent confinement February 2018 for COPD exacerbation. Consolidation/possible postobstructive pneumonia noted on imaging during confinement. Patient refused workup bronchoscopic eval. And also found to be at risk for aspiration during confinement. Patient discharged to [facility] subsequently discharged back home. Patient noted worsening shortness of breath, fluid retention, leg swelling/ redness in the last week. Patient denies chest pain. No unusual cough symptoms. Admits to dietary indiscretion. Patient family worried that patient does not move around as much. No fever, no chills. At the ER, patient given IV Lasix for CHF. Allergies Allergy/AdvReac Type Severity Reaction Status Date / Time No Known Allergies Allergy Verified 10/14/18 21:24 Home Medications Home Medications Medication Instructions Recorded Confirmed Type albuterol sulfate 3 ml CONTINUOUS NEBULIZATION Q4H 10/14/18 10/14/18 History PRN aspirin [Aspir-81] 81 mg PO DAILY 10/14/18 10/14/18 History captopril 25 mg PO TID 10/14/18 10/14/18 History colchicine 0.6 mg PO DAILY 10/14/18 10/14/18 History diclofenac sodium 75 mg PO BID PRN 10/14/18 10/14/18 History ferrous sulfate 325 mg PO BID 10/14/18 10/14/18 History furosemide 20 mg PO BID 10/14/18 10/14/18 History guaifenesin 600 mg PO Q12H 10/14/18 10/14/18 History metoprolol tartrate 50 mg PO BID 10/14/18 10/14/18 History multivitamin [Multiple Vitamins] 1 tab PO DAILY 10/14/18 10/14/18 History omeprazole 40 mg PO DAILY 10/14/18 10/14/18 History prednisone 20 mg PO DAILY 10/14/18 10/14/18 History ranitidine HCl 150 mg PO BID 10/14/18 10/14/18 History tiotropium bromide [Spiriva with 1 cap INHALATION DAILY 10/14/18 10/14/18 History HandiHaler] tramadol 50 mg PO Q6H PRN 10/14/18 10/14/18 History Past Med/Surg History Medical History Hypertension (Chronic) Dyslipidemia (Chronic) Paroxysmal SVT (supraventricular tachycardia) (Chronic) COPD (chronic obstructive pulmonary disease) (Chronic) Oxygen dependent (Chronic) Lymphedema (Chronic) CKD (chronic kidney disease), stage III (Chronic) CHRISTIE (obstructive sleep apnea) (Chronic) Iron deficiency anemia (Chronic) Surgical History H/O left knee surgery (Chronic) H/O right knee surgery (Chronic) History of colon resection (Chronic) "Due to diverticulitis" History of cholecystectomy (Chronic) Social History marital status: Current Living Situation: Spouse current occupation: Retired truck packer Other Information That Helps Us Care for You: No Feels Safe at Home: Yes Safety Concerns: Feels Safe At This Time Smoking Status: Former smoker Do You Dip or Chew Tobacco: No Smoking End Date: about 2013 Hx Alcohol Use: No Hx Substance Use: No Beliefs That Will Affect Care: None Communication Ability: Effective Review of Systems As per HPI, all 10 systems reviewed, all other ROS negative Physical Exam 2 Vital Signs (Past 24 Hours): Last Vital Signs Temp 36.9 C 10/14/18 17:00 Pulse 71 10/14/18 17:00 Resp 26 H 10/14/18 17:00 BP 148/66 H 10/14/18 17:00 Pulse Ox 100 10/14/18 17:27 Physical Exam: GENERAL: Obese, uncomfortable, minimal respiratory distress, unkempt SKIN: Pallor , warm HEENT: Pale palpebral conjunctivae, no ptosis, dry buccal mucosa NECK : Supple, short no tenderness CHEST : Decreased breath sounds, no tenderness HEART : RRR, no obvious murmurs ABDOMEN: distention, nontender EXTREMITIES : dani LE swelling/induration, minimal LE tenderness, no other conspicuous deformities noted NEUROLOGIC : Coherent, no facial asymmetry, no other gross focality Results & Data Laboratory Results Laboratory Results WBC 9.65 K/uL (4.8-10.8) 10/14/18 19:16 RBC 3.03 M/uL (4.7-6.1) L 10/14/18 19:16 Hgb 8.2 g/dL (14.0-18.0) L 10/14/18 19:16 POC Hgb 9.2 g/dl (14.0-18.0) L 10/14/18 17:53 Hct 30.7 % (42-52) L 10/14/18 19:16 POC Hct 27 % (42-52) L 10/14/18 17:53 MCV 101.3 fL (80-100) H 10/14/18 19:16 MCH 27.1 pg (25-34) 10/14/18 19:16 MCHC 26.7 g/dL (32-36) L 10/14/18 19:16 RDW Std Deviation 56.1 fL (36.4-46.3) H 10/14/18 19:16 RDW Coeff of Kate 15.4 % (11.5-14.5) H 10/14/18 19:16 Plt Count 347 K/uL (130-400) 10/14/18 19:16 MPV 10.3 fL (7.4-10.4) 10/14/18 19:16 Immature Gran % (Auto) 0.3 % 10/14/18 17:00 Neut % (Auto) 74.5 % 10/14/18 17:00 Lymph % (Auto) 14.2 % 10/14/18 17:00 [place] % (Auto) 9.8 % 10/14/18 17:00 Eos % (Auto) 0.9 % 10/14/18 17:00 Baso % (Auto) 0.3 % 10/14/18 17:00 Immature Gran # (Auto) 0.03 K/uL (0.00-0.02) H 10/14/18 17:00 Neut # (Auto) 8.96 K/uL (1.4-6.5) H 10/14/18 17:00 Lymph # (Auto) 1.70 K/uL (1.2-3.4) 10/14/18 17:00 [place] # (Auto) 1.17 K/uL (0.11-0.59) H 10/14/18 17:00 Eos # (Auto) 0.11 K/uL (0-0.5) 10/14/18 17:00 Baso # (Auto) 0.03 K/uL (0-0.2) 10/14/18 17:00 Polychromasia 1+ 10/14/18 17:00 Hypochromasia Present 10/14/18 17:00 Ovalocytes 1+ 10/14/18 17:00 APTT 25.2 Seconds (21.0-31.0) 10/14/18 17:00 PTT Ratio 1.0 10/14/18 17:00 VBG pH 7.34 (7.36-7.41) L 10/14/18 18:37 VBG pCO2 71 mmHg (38-50) H 10/14/18 18:37 VBG pO2 22 mmHg 10/14/18 18:37 VBG HCO3 37 mmol/L 10/14/18 18:37 VBG O2 Saturation < 60.0 % 10/14/18 18:37 VBG Base Excess 9.3 mEq/L 10/14/18 18:37 Barometric Pressure 730.1 mm/Hg 10/14/18 18:37 POC Sodium 143 mEq/L (135-144) 10/14/18 17:53 Sodium 141 mmol/L (136-145) 10/14/18 17:00 POC Potassium 4.1 mEq/L (3.3-5.0) 10/14/18 17:53 Potassium 3.9 mmol/L (3.5-5.1) 10/14/18 17:00 POC Chloride 97 mEq/L (101-112) L 10/14/18 17:53 Chloride 102 mmol/L (98-107) 10/14/18 17:00 Carbon Dioxide 35 mmol/L (21-32) H 10/14/18 17:00 POC Total CO2 34 mEq/l (24-31) H 10/14/18 17:53 Anion Gap 4.0 (3-11) 10/14/18 17:00 POC Anion Gap 17.0 mmol/L (16-25) 10/14/18 17:53 POC BUN 21 mg/dl (7-18) H 10/14/18 17:53 BUN 21 mg/dl (7-18) H 10/14/18 17:00 Creatinine 1.23 mg/dl (0.6-1.4) 10/14/18 17:00 POC Creatinine 1.2 mg/dl (0.6-1.3) 10/14/18 17:53 Est Cr Clr Drug Dosing 76.0 ml/min 10/14/18 17:00 Est GFR ( Amer) 67.6 10/14/18 17:00 Est GFR (Non-Af Amer) 58.3 10/14/18 17:00 BUN/Creatinine Ratio 16.9 (10-20) 10/14/18 17:00 Glucose 111 mg/dl (70-99) H 10/14/18 17:00 POC Glucose (other) 106 mg/dl (70-99) H 10/14/18 17:53 Calcium 8.4 mg/dl (8.5-10.1) L 10/14/18 17:00 POC Ioniz Calcium Deric 1.15 mmol/l (1.12-1.32) 10/14/18 17:53 Magnesium 2.4 mg/dl (1.8-2.4) 10/14/18 17:00 Total Bilirubin 0.4 mg/dl (0.2-1) 10/14/18 17:00 AST 12 U/L (15-37) L 10/14/18 17:00 ALT 14 U/L (12-78) 10/14/18 17:00 Alkaline Phosphatase 78 U/L (45-117) 10/14/18 17:00 Troponin I 0.025 ng/ml (0-0.045) 10/14/18 17:00 NT-Pro-B Natriuret Pep 2156 pg/ml (0-900) H 10/14/18 17:00 Total Protein 6.3 gm/dl (6.4-8.2) L 10/14/18 17:00 Albumin 3.2 gm/dl (3.4-5.0) L 10/14/18 17:00 Globulin 3.1 gm/dl (2.5-4.0) 10/14/18 17:00 Albumin/Globulin Ratio 1.0 (0.9-2) 10/14/18 17:00 Lipase 112 U/L (73-393) 10/14/18 17:00 Urine Color Dark Yellow 10/14/18 20:00 Urine Appearance Clear (Clear) 10/14/18 20:00 Urine pH 5.5 (4.5-7.5) 10/14/18 20:00 Ur Specific [place] 1.019 (1.000-1.030) 10/14/18 20:00 Urine Protein Negative (Negative) 10/14/18 20:00 Urine Glucose (UA) Negative (Negative) 10/14/18 20:00 Urine Ketones Trace (Negative) H 10/14/18 20:00 Urine Blood Negative (Negative) 10/14/18 20:00 Urine Nitrite Negative (Negative) 10/14/18 20:00 Urine Bilirubin Negative (Negative) 10/14/18 20:00 Urine Urobilinogen Negative (Negative) 10/14/18 20:00 Ur Leukocyte Esterase Negative (Negative) 10/14/18 20:00 Diagnostic Findings Chest x-ray showed CHF EKG as per my interpretation : Rate 70, NSR, LAD, LAFB, RBBB, T wave flattening inferior leads
[2018-10-14] MEDS ORDERED: NITROGLYCERIN SL 0.4 MG/TAB TAB SL PRN (23:36)
[2018-10-14] MEDS ORDERED: TRAMADOL HCL 50 MG TABLET PO PRN (23:36)
[2018-10-15] MEDS: DOXYCYCLINE HYCLATE 100 MG CAP PO SCH ×3 (01:01→20:26)
[2018-10-15] MEDS: METOPROLOL TARTRATE 50 MG TAB PO SCH ×2 (01:02→09:35)
[2018-10-15] MEDS: LEVALBUTEROL 1.25MG/0.5ML NEB INH SCH ×4 (01:49→19:13)
[2018-10-15] MEDS: IPRATROPIUM BROMIDE NEB SOLN 0.02% 2.5 ML VIAL INH SCH ×4 (01:50→19:13)
[2018-10-15] MEDS ORDERED: XOPENEX/ATROVENT 1.25mg/0.5MG NEB COMBO NEB SCH (02:00)
[2018-10-15 06:28] LABS: BUN Creatinine Ratio 19.1 (10-20); Calcium 8.5 mg/dl (8.5-10.1); Creatinine Clr Calc Pharmacy 100.4 ml/min; Est GFR (African American) 71.8; Est GFR (Non-African American) 61.9; Potassium 4.2 mmol/L (3.5-5.1)
[2018-10-15 06:33] LABS: Troponin I 0.025 ng/ml (0-0.045)
--- NOTE | 2018-10-15 06:37 | Ultrasound Report ---
US venous doppler LE BI HISTORY: Pain. Edema. leg swelling COMPARISON STUDY: None. FINDINGS: There is normal compressibility, flow, and augmentation within the bilateral lower extremit y deep venous systems. IMPRESSION: No DVT within the right or left lower extremity. The above report was generated using voice recognition software. It may contain grammatical, syntax or spelling errors. Electronically signed by: Jose Deutsch M.D. 10/15/2018 6:36 AM
[2018-10-15 06:38] LABS: Hematocrit (blood only) 30.5 % (42-52); Hemoglobin 8.2 g/dL (14.0-18.0); Mean Corpuscular Hgb Conc 26.9 g/dL (32-36); Mean Corpuscular Volume 101.3 fL (80-100); Mean Platelet Volume 10.7 fL (7.4-10.4); Platelet Count 313 K/uL (130-400); RDW Coefficient of Variation 15.4 % (11.5-14.5); RDW Standard Deviation 55.7 fL (36.4-46.3); Red Blood Count 3.01 M/uL (4.7-6.1); White Blood Count 11.81 K/uL (4.8-10.8)
[2018-10-15 06:48] LABS: INR 1.1 (0.9-1.1); Prothrombin Time 10.7 Seconds (9.0-12.0)
[2018-10-15 06:53] LABS: Anisocytosis Present; Basophils # (auto) 0.02 K/uL (0-0.2); Basophils % (auto) 0.2 %; Immature Granulocytes # (auto) 0.04 K/uL (0.00-0.02); Immature Granulocytes % (auto) 0.3 %; Lymphocytes # (auto) 0.93 K/uL (1.2-3.4); Lymphocytes % (auto) 7.9 %; Monocytes # (auto) 0.96 K/uL (0.11-0.59); Monocytes % (auto) 8.1 %; Neutrophils # (auto) 9.86 K/uL (1.4-6.5); Neutrophils % (auto) 83.5 %; Polychromasia 1+; Stomatocytes 1+
[2018-10-15] MEDS ORDERED: PERFLUTREN LIPID MICROSPHERE (DEFINITY) IV ONE (07:23)
[2018-10-15] MEDS ORDERED: FUROSEMIDE 40 MG/4 ML VIAL IV SCH (09:00)
[2018-10-15] MEDS ORDERED: FUROSEMIDE 40 MG in SYRINGE 0 ML IV SCH (09:00)
[2018-10-15] MEDS: ASPIRIN 81 MG ECTAB PO SCH (09:34)
[2018-10-15] MEDS: COLCHICINE 0.6 MG TAB PO SCH (09:34)
[2018-10-15] MEDS: FERROUS SULFATE 325 MG TAB PO SCH ×2 (09:34→20:26)
[2018-10-15] MEDS: CAPTOPRIL 25 MG TAB PO SCH ×3 (09:34→20:27)
[2018-10-15] MEDS: ENOXAPARIN INJ 40 MG/0.4 ML SYR SQ SCH (09:35)
[2018-10-15] MEDS: MULTIVITAMIN TAB PO SCH (09:35)
[2018-10-15] MEDS: predniSONE 20 MG TAB PO SCH (09:35)
[2018-10-15] MEDS: PANTOprazole 40 MG TAB PO SCH (09:36)
--- NOTE | 2018-10-15 11:40 | Hospitalist Progress Note ---
Date of Service October 15, 2018 Assessment & Plan (1) Acute hypoxemic respiratory failure: Acute on chronic Secondary to decompensated heart failure hx diastolic dysfunction (EF 65-70% TTE 2018) 40 kg weight gain following recent confinement from March 2018 Uncontrolled BP, dietary indiscretion, NSAID intake, home steroid Rx contributory to fluid retention chronic respiratory failure secondary to steroid dependent COPD on home O2 CHRISTIE on CPAP past tobacco abuse Questionable Mass RLL on CTA 02/2018 will repeat LE cellulitis in the setting of chronic lymphedema US neg for DVT Steroid-induced hyperglycemia Functional disability chronic anemia, hemoglobin at baseline Supplemental O2 Diuretic Rx, Adjust Lasix Strict IOs, daily weights, CHF education Update TTE, Cardiology consult RE CHF Titrate antihypertensive meds Consider decreasing/tapering down daily prednisone dose for COPD Hold home NSAIDs Cultures, Doxycycline, local measures for LE cellulitis Check hemoglobin A1c PT OT eval DVT prophylaxis. Lovenox subcu DNR Patient stepdaughter requesting updates from providers. Ms. Ina Mullins, contact #[phone]. D/W Stepdaughter Subjective 73 yo obese male c PMH of chronic diastolic heart failure (EF 65-70% TTE 2018), chronic respiratory failure secondary to steroid dependent COPD on home O2, CHRISTIE on CPAP, past tobacco abuse, hypertension, PSVT as per records, chronic lymphedema, chronic anemia baseline hemoglobin of 8. Recent confinement February 2018 for COPD exacerbation. Consolidation/possible postobstructive pneumonia noted on imaging during confinement. Patient refused workup bronchoscopic eval. And also found to be at risk for aspiration during confinement. Patient discharged to [facility] subsequently discharged back home. Patient noted worsening shortness of breath, fluid retention, leg swelling/ redness in the last week. Patient denies chest pain. No unusual cough symptoms. Admits to dietary indiscretion. Patient family worried that patient does not move around as much. No fever, no chills. In ER patient given IV Lasix for CHF. ROS-No Headache, No Visual Changes, No Fever, No Chills, No Neck Pain or Stiffness, No Chest Pain, No Palpitations, + SOB, + STEPHENS, No Cough, No Sputum, No Wheezing, No Abdominal Pain, No Diarrhea, No Hematemesis, No Hemoptysis, No Unexpected Weight Loss, No Flank pain, No Melena, No Hematochezia, No Frequency , No Urgency, No Burning, No Hematuria, No Rashes, No Diaphoresis. Appetite is Normal, C/O LE edema Physical Exam Gen-AAO x 3, NAD, Afebrile, Morbidly Obese Head-NCAT, EOMI, PERRLA, Anicteric Sclera, No Posterior Pharyngeal Erythema Neck-Supple, No JVD, No Thyromegaly, No Masses, No LAD, No Bruits Lungs-Clear to Auscultation Bilaterally, No Rales, No Rhonchi, No Wheezing, No Crepitus Chest-No S4, +S1, +S2, No S3, No Murmurs, No Rubs, No Gallops, No Ectopy Abdomen-Soft, Bowel Sounds Present, Non Tender, Non Distended, No Hepatomegaly, No Splenomegaly, No Palpable Masses, No Rebound, No Rigidity, No Guarding Musculoskeletal-Full Range of Motion Bilaterally, No CVAT Extremities-+B/L LE and Foot edema c Erythema, Chronic Stasis changes Nuero-Cranial Nerves II-XII grossly intact, Motor WNL, DTRs WNL, Strength WNL, No Focal Psych-Normal Mood Physical Exam 2 Vital Signs (Past 24 Hours): Last Vital Signs Temp 37.0 C 10/15/18 07:42 Pulse 66 10/15/18 11:36 Resp 17 10/15/18 11:36 BP 116/61 10/15/18 11:36 Pulse Ox 96 10/15/18 11:36 Results & Data Laboratory Results Allergies No Known Allergies Allergy (Verified 10/14/18 21:24) Height/Weight/Isolation Height 5 ft 10 in Weight 201.4 kg Chemistry 10/14/18 10/15/18 17:00 05:43 Sodium 141 142 Potassium 3.9 4.2 Chloride 102 102 Carbon Dioxide 35 H 36 H Anion Gap 4.0 4.0 BUN 21 H 22 H Creatinine 1.23 1.17 Glucose 111 H 145 H Urinalysis 10/14/18 20:00 Urine Color Dark Yellow Urine Appearance Clear Urine pH 5.5 Ur Specific [place] 1.019 Urine Protein Negative Urine Glucose (UA) Negative Urine Ketones Trace H Urine Blood Negative Urine Nitrite Negative Urine Bilirubin Negative Microbiology 10/14/18 17:00 Leg,Left Gram Stain - Final 10/14/18 17:00 Leg,Left Wound Culture - Preliminary Staphylococcus aureus Gram negative bacilli
[2018-10-15] MEDS: FUROSEMIDE 60 MG in SYRINGE 0 ML IV SCH ×2 (12:26→20:25)
[2018-10-15 12:44] LABS: Estimated Average Glucose 88 mg/dl; Hemoglobin A1C 4.7 % (4.5-5.6)
[2018-10-15] MEDS ORDERED: IOVERSOL 100ml IV PRN (13:37)
--- NOTE | 2018-10-15 13:56 | CT Scan Report ---
CT OF THE CHEST WITH IV CONTRAST CLINICAL HISTORY: RLL lung mass in 02/2018 COMPARISON STUDY: Chest CT March 05, 2018 and chest radiograph October 14, 2018. TECHNIQUE: Following IV administration of 93 mL of [id number]-320, helical axial images of the chest we re obtained. Sagittal and coronal reconstructions were viewed as well as maximal intensity projectio ns on an independent 3-D workstation. Automated exposure control was utilized for the study. A dose lowering technique was utilized adhering to the principles of ALARA. CT DOSE: 1244.28 mGy.cm FINDINGS: This exam is compromised by body wall contacting the gantry. The heart is moderately enlar ged. There is extensive coronary artery calcification. There is no pericardial effusion. No enlarged axillary, mediastinal or hilar lymph nodes are present. There is no pneumothorax. A trace right pleur al effusion is noted. The right lower lobe mass-like opacity shown on exam of March 05, 2018 is no nasreen malinda well identified. There is minimal residual opacity which may reflect scarring or atelectasis. No central obstructing mass is identified. Linear opacities within the lungs favor atelectasis. There is no consolidation to suggest pneumonia. No suspicious lesion within the bony thorax is noted. Upper a bdomen is suboptimally assessed on this exam due to artifact. There are cholecystectomy clips. IMPRESSION: 1. Right lower lobe mass-like opacity shown on CT of March 05, 2018 is no longer visualized. This sugg ests resolution of pneumonia. Mild residual opacity favors scarring or atelectasis. A precautionary f ollow-up chest CT in 6 months is recommended given the significant artifact on this exam. 2. Moderate cardiomegaly. Extensive coronary artery calcification. 3. Trace right pleural effusion. 4. Linear opacities within the lungs which favor atelectasis. Electronically signed by: Clarke Valenzuela M.D. 10/15/2018 1:54 PM
--- NOTE | 2018-10-15 15:39 | Cardiology Consultation ---
Date of Consultation October 15, 2018 Assessment & Plan (1) Pickwickian syndrome: Patient has had gradual decline of several months and greater than 40 pound weight gain. Recommendations: Continue pulmonary supplementation with CPAP and oxygen Continue IV diuretics. Change metoprolol to Toprol-XL with titrate upward for control of heart rate and SVT. Will reduce captopril to allow above. Add spironolactone to her regimen. Sodium and fluid restriction will be mandatory in this patient ultimate goals additional weight loss (2) COPD (chronic obstructive pulmonary disease): (3) CHRISTIE (obstructive sleep apnea): (4) Right heart failure: (5) Paroxysmal SVT (supraventricular tachycardia): (6) Hypertension: History of Present Illness Reason for Consultation: Right heart failure, pickwickian Requesting Physician: Dr Campuzano Attending Physician: Bob Campuzano, DO History of Present Illness Patient is a 73-year-old male past history is notable for morbid obesity with pickwickian syndrome/COPD with underlying history of obstructive sleep apnea, hypertension, history of past paroxysmal atrial tachycardia. Patient presents this admission noting progressive decline over several months weight gain of more than 40 pounds increasing abdominal bloating and lower extremity edema. He has been wearing CPAP and oxygen as prescribed. Only fair tolerance with sodium and fluid restriction. Has been taking medications as prescribed. Notes no acute fevers chills sweats. No cough hoarseness wheeze or hemoptysis. Notes no chest pains notes no tachypalpitations that he has been aware of. Spends most of his time in a lift chair and sleeps in such. Minimal tolerance of activities of ADLs. Denies bleeding difficulties melena hematochezia dysuria hematuria Allergies Allergy/AdvReac Type Severity Reaction Status Date / Time No Known Allergies Allergy Verified 10/14/18 21:24 Home Medications Home Medications Medication Instructions Recorded Confirmed Type albuterol sulfate 3 ml CONTINUOUS NEBULIZATION Q4H 10/14/18 10/14/18 History PRN aspirin [Aspir-81] 81 mg PO DAILY 10/14/18 10/14/18 History captopril 25 mg PO TID 10/14/18 10/14/18 History colchicine 0.6 mg PO DAILY 10/14/18 10/14/18 History diclofenac sodium 75 mg PO BID PRN 10/14/18 10/14/18 History ferrous sulfate 325 mg PO BID 10/14/18 10/14/18 History furosemide 20 mg PO BID 10/14/18 10/14/18 History guaifenesin 600 mg PO Q12H 10/14/18 10/14/18 History metoprolol tartrate 50 mg PO BID 10/14/18 10/14/18 History multivitamin [Multiple Vitamins] 1 tab PO DAILY 10/14/18 10/14/18 History omeprazole 40 mg PO DAILY 10/14/18 10/14/18 History prednisone 20 mg PO DAILY 10/14/18 10/14/18 History ranitidine HCl 150 mg PO BID 10/14/18 10/14/18 History tiotropium bromide [Spiriva with 1 cap INHALATION DAILY 10/14/18 10/14/18 History HandiHaler] tramadol 50 mg PO Q6H PRN 10/14/18 10/14/18 History Patient History Medical History Hypertension (Chronic) Dyslipidemia (Chronic) Paroxysmal SVT (supraventricular tachycardia) (Chronic) COPD (chronic obstructive pulmonary disease) (Chronic) Oxygen dependent (Chronic) Lymphedema (Chronic) CKD (chronic kidney disease), stage III (Chronic) CHRISTIE (obstructive sleep apnea) (Chronic) Iron deficiency anemia (Chronic) Surgical History H/O left knee surgery (Chronic) H/O right knee surgery (Chronic) History of colon resection (Chronic) "Due to diverticulitis" History of cholecystectomy (Chronic) Family History Other Family history non-contributory Social History marital status: Current Living Situation: Spouse Other Information That Helps Us Care for You: No Feels Safe at Home: Yes Safety Concerns: Feels Safe At This Time Smoking Status: Former smoker Do You Dip or Chew Tobacco: No Smoking End Date: about 2013 Hx Alcohol Use: No Hx Substance Use: No Beliefs That Will Affect Care: None Communication Ability: Effective Review of Systems As per HPI and otherwise negative Physical Exam 2 Vital Signs (Past 24 Hours): Last Vital Signs Temp 37.0 C 10/15/18 07:42 Pulse 74 10/15/18 14:23 Resp 18 10/15/18 14:23 BP 116/61 10/15/18 11:36 Pulse Ox 100 10/15/18 14:23 Physical Exam: Patient is a morbidly obese male receiving respiratory treatment. No acute complaints. Vital signs as above HEENT exam is normocephalic and atraumatic, nares without discharge throat generally clear with poor visualization of the uvula Neck very thick no distinct jugular venous distention no audible carotid bruit Lungs markedly diminished breath sounds with poor respiratory flow Cardiovascular exam regular occasional ventricular ectopic beats no audible murmur rub with distant heart sounds Abdomen is soft with moderate distention large panniculus no palpable mass or hepatosplenomegaly Extremities 3+ edema to mid thighs ruborous changes bilateral lower extremities and feet. Distal pulses are palpable Results & Data Laboratory Results Laboratory Results - last 24 hr 10/14/18 10/14/18 10/14/18 17:00 17:00 17:00 WBC 12.00 H RBC 3.20 L Hgb 8.8 L POC Hgb Hct 33.1 L POC Hct MCV 103.4 H MCH 27.5 MCHC 26.6 L RDW Std Deviation RDW Coeff of Kate Plt Count 404 H MPV Immature Gran % (Auto) 0.3 Neut % (Auto) 74.5 Lymph % (Auto) 14.2 [place] % (Auto) 9.8 Eos % (Auto) 0.9 Baso % (Auto) 0.3 Immature Gran # (Auto) 0.03 H Neut # (Auto) 8.96 H Lymph # (Auto) 1.70 [place] # (Auto) 1.17 H Eos # (Auto) 0.11 Baso # (Auto) 0.03 Polychromasia 1+ Hypochromasia Present Anisocytosis Ovalocytes 1+ Stomatocytes PT INR APTT 25.2 PTT Ratio 1.0 VBG pH VBG pCO2 VBG pO2 VBG HCO3 VBG O2 Saturation VBG Base Excess Barometric Pressure POC Sodium Sodium 141 POC Potassium Potassium 3.9 POC Chloride Chloride 102 Carbon Dioxide 35 H POC Total CO2 Anion Gap 4.0 POC Anion Gap POC BUN BUN 21 H Creatinine 1.23 POC Creatinine Est Cr Clr Drug Dosing 76.0 Est GFR ( Amer) 67.6 Est GFR (Non-Af Amer) 58.3 BUN/Creatinine Ratio 16.9 Glucose 111 H POC Glucose (other) Estimat Average Glucose Hemoglobin A1c Calcium 8.4 L POC Ioniz Calcium Deric Magnesium 2.4 Total Bilirubin 0.4 AST 12 L ALT 14 Alkaline Phosphatase 78 Troponin I 0.025 NT-Pro-B Natriuret Pep 2156 H Total Protein 6.3 L Albumin 3.2 L Globulin 3.1 Albumin/Globulin Ratio 1.0 Lipase 112 TSH 1.810 Urine Color Urine Appearance Urine pH Ur Specific [place] Urine Protein Urine Glucose (UA) Urine Ketones Urine Blood Urine Nitrite Urine Bilirubin Urine Urobilinogen Ur Leukocyte Esterase Hepatitis C Ab Screen 10/14/18 10/14/18 10/14/18 17:00 17:53 18:37 WBC RBC Hgb POC Hgb 9.2 L Hct POC Hct 27 L MCV MCH MCHC RDW Std Deviation RDW Coeff of Kate Plt Count MPV Immature Gran % (Auto) Neut % (Auto) Lymph % (Auto) [place] % (Auto) Eos % (Auto) Baso % (Auto) Immature Gran # (Auto) Neut # (Auto) Lymph # (Auto) [place] # (Auto) Eos # (Auto) Baso # (Auto) Polychromasia Hypochromasia Anisocytosis Ovalocytes Stomatocytes PT INR APTT PTT Ratio VBG pH 7.34 L VBG pCO2 71 H VBG pO2 22 VBG HCO3 37 VBG O2 Saturation < 60.0 VBG Base Excess 9.3 Barometric Pressure 730.1 POC Sodium 143 Sodium POC Potassium 4.1 Potassium POC Chloride 97 L Chloride Carbon Dioxide POC Total CO2 34 H Anion Gap POC Anion Gap 17.0 POC BUN 21 H BUN Creatinine POC Creatinine 1.2 Est Cr Clr Drug Dosing Est GFR ( Amer) Est GFR (Non-Af Amer) BUN/Creatinine Ratio Glucose POC Glucose (other) 106 H Estimat Average Glucose Hemoglobin A1c Calcium POC Ioniz Calcium Deric 1.15 Magnesium Total Bilirubin AST ALT Alkaline Phosphatase Troponin I NT-Pro-B Natriuret Pep Total Protein Albumin Globulin Albumin/Globulin Ratio Lipase TSH Urine Color Urine Appearance Urine pH Ur Specific [place] Urine Protein Urine Glucose (UA) Urine Ketones Urine Blood Urine Nitrite Urine Bilirubin Urine Urobilinogen Ur Leukocyte Esterase Hepatitis C Ab Screen Neg 10/14/18 10/14/18 10/15/18 19:16 20:00 05:43 WBC 9.65 11.81 H RBC 3.03 L 3.01 L Hgb 8.2 L 8.2 L POC Hgb Hct 30.7 L 30.5 L POC Hct MCV 101.3 H 101.3 H MCH 27.1 27.2 MCHC 26.7 L 26.9 L RDW Std Deviation 56.1 H 55.7 H RDW Coeff of Kate 15.4 H 15.4 H Plt Count 347 313 MPV 10.3 10.7 H Immature Gran % (Auto) 0.3 Neut % (Auto) 83.5 Lymph % (Auto) 7.9 [place] % (Auto) 8.1 Eos % (Auto) 0.0 Baso % (Auto) 0.2 Immature Gran # (Auto) 0.04 H Neut # (Auto) 9.86 H Lymph # (Auto) 0.93 L [place] # (Auto) 0.96 H Eos # (Auto) 0.00 Baso # (Auto) 0.02 Polychromasia 1+ Hypochromasia Anisocytosis Present Ovalocytes Stomatocytes 1+ PT INR APTT PTT Ratio VBG pH VBG pCO2 VBG pO2 VBG HCO3 VBG O2 Saturation VBG Base Excess Barometric Pressure POC Sodium Sodium POC Potassium Potassium POC Chloride Chloride Carbon Dioxide POC Total CO2 Anion Gap POC Anion Gap POC BUN BUN Creatinine POC Creatinine Est Cr Clr Drug Dosing Est GFR ( Amer) Est GFR (Non-Af Amer) BUN/Creatinine Ratio Glucose POC Glucose (other) Estimat Average Glucose Hemoglobin A1c Calcium POC Ioniz Calcium Deric Magnesium Total Bilirubin AST ALT Alkaline Phosphatase Troponin I NT-Pro-B Natriuret Pep Total Protein Albumin Globulin Albumin/Globulin Ratio Lipase TSH Urine Color Dark Yellow Urine Appearance Clear Urine pH 5.5 Ur Specific [place] 1.019 Urine Protein Negative Urine Glucose (UA) Negative Urine Ketones Trace H Urine Blood Negative Urine Nitrite Negative Urine Bilirubin Negative Urine Urobilinogen Negative Ur Leukocyte Esterase Negative Hepatitis C Ab Screen 10/15/18 10/15/18 10/15/18 05:43 05:43 05:43 WBC RBC Hgb POC Hgb Hct POC Hct MCV MCH MCHC RDW Std Deviation RDW Coeff of Kate Plt Count MPV Immature Gran % (Auto) Neut % (Auto) Lymph % (Auto) [place] % (Auto) Eos % (Auto) Baso % (Auto) Immature Gran # (Auto) Neut # (Auto) Lymph # (Auto) [place] # (Auto) Eos # (Auto) Baso # (Auto) Polychromasia Hypochromasia Anisocytosis Ovalocytes Stomatocytes PT 10.7 INR 1.1 APTT 25.0 PTT Ratio 1.0 VBG pH VBG pCO2 VBG pO2 VBG HCO3 VBG O2 Saturation VBG Base Excess Barometric Pressure POC Sodium Sodium 142 POC Potassium Potassium 4.2 POC Chloride Chloride 102 Carbon Dioxide 36 H POC Total CO2 Anion Gap 4.0 POC Anion Gap POC BUN BUN 22 H Creatinine 1.17 POC Creatinine Est Cr Clr Drug Dosing 100.4 Est GFR ( Amer) 71.8 Est GFR (Non-Af Amer) 61.9 BUN/Creatinine Ratio 19.1 Glucose 145 H POC Glucose (other) Estimat Average Glucose Hemoglobin A1c Calcium 8.5 POC Ioniz Calcium Deric Magnesium Total Bilirubin AST ALT Alkaline Phosphatase Troponin I 0.025 NT-Pro-B Natriuret Pep Total Protein Albumin Globulin Albumin/Globulin Ratio Lipase TSH Urine Color Urine Appearance Urine pH Ur Specific [place] Urine Protein Urine Glucose (UA) Urine Ketones Urine Blood Urine Nitrite Urine Bilirubin Urine Urobilinogen Ur Leukocyte Esterase Hepatitis C Ab Screen 10/15/18 05:43 WBC RBC Hgb POC Hgb Hct POC Hct MCV MCH MCHC RDW Std Deviation RDW Coeff of Kate Plt Count MPV Immature Gran % (Auto) Neut % (Auto) Lymph % (Auto) [place] % (Auto) Eos % (Auto) Baso % (Auto) Immature Gran # (Auto) Neut # (Auto) Lymph # (Auto) [place] # (Auto) Eos # (Auto) Baso # (Auto) Polychromasia Hypochromasia Anisocytosis Ovalocytes Stomatocytes PT INR APTT PTT Ratio VBG pH VBG pCO2 VBG pO2 VBG HCO3 VBG O2 Saturation VBG Base Excess Barometric Pressure POC Sodium Sodium POC Potassium Potassium POC Chloride Chloride Carbon Dioxide POC Total CO2 Anion Gap POC Anion Gap POC BUN BUN Creatinine POC Creatinine Est Cr Clr Drug Dosing Est GFR ( Amer) Est GFR (Non-Af Amer) BUN/Creatinine Ratio Glucose POC Glucose (other) Estimat Average Glucose 88 Hemoglobin A1c 4.7 Calcium POC Ioniz Calcium Deric Magnesium Total Bilirubin AST ALT Alkaline Phosphatase Troponin I NT-Pro-B Natriuret Pep Total Protein Albumin Globulin Albumin/Globulin Ratio Lipase TSH Urine Color Urine Appearance Urine pH Ur Specific [place] Urine Protein Urine Glucose (UA) Urine Ketones Urine Blood Urine Nitrite Urine Bilirubin Urine Urobilinogen Ur Leukocyte Esterase Hepatitis C Ab Screen Diagnostic Findings Echocardiogram fair technical quality reveals small hypertrophied ventricle with hyperdynamic LV function EF greater than 70% mildly enlarged right ventricle no significant valvular disease
[2018-10-15] MEDS: SPIRONOLACTONE 25 MG TAB PO SCH (16:48)
[2018-10-15] MEDS: METOPROLOL SUCC 50MG EXT REL TAB PO SCH (20:26)
[2018-10-16] MEDS: IPRATROPIUM BROMIDE NEB SOLN 0.02% 2.5 ML VIAL INH SCH ×4 (02:22→19:15)
[2018-10-16] MEDS: LEVALBUTEROL 1.25MG/0.5ML NEB INH SCH ×4 (02:22→19:15)
[2018-10-16] MEDS: ACETAMINOPHEN 325 MG TAB PO PRN ×2 (06:16→23:40)
[2018-10-16 06:29] LABS: Hematocrit (blood only) 30.2 % (42-52); Hemoglobin 8.3 g/dL (14.0-18.0); Mean Corpuscular Hgb Conc 27.5 g/dL (32-36); Mean Platelet Volume 10.3 fL (7.4-10.4); Platelet Count 364 K/uL (130-400); RDW Coefficient of Variation 15.3 % (11.5-14.5); RDW Standard Deviation 55.3 fL (36.4-46.3); Red Blood Count 2.99 M/uL (4.7-6.1); White Blood Count 9.64 K/uL (4.8-10.8)
[2018-10-16] MEDS ORDERED: MICONAZOLE NITRATE POWDER 43 GM EXT PRN (06:57)
[2018-10-16 07:18] LABS: BUN Creatinine Ratio 18.9 (10-20); Calcium 8.2 mg/dl (8.5-10.1); Creatinine Clr Calc Pharmacy 15.3 ml/min; Est GFR (Non-African American) 61.3; Potassium 3.4 mmol/L (3.5-5.1)
[2018-10-16] MEDS: DOXYCYCLINE HYCLATE 100 MG CAP PO SCH ×2 (08:39→20:19)
[2018-10-16] MEDS: ASPIRIN 81 MG ECTAB PO SCH (08:40)
[2018-10-16] MEDS: FERROUS SULFATE 325 MG TAB PO SCH ×2 (08:40→20:20)
[2018-10-16] MEDS: FUROSEMIDE 60 MG in SYRINGE 0 ML IV SCH ×2 (08:40→20:17)
[2018-10-16] MEDS: METOPROLOL SUCC 50MG EXT REL TAB PO SCH (08:41)
[2018-10-16] MEDS: COLCHICINE 0.6 MG TAB PO SCH (08:41)
[2018-10-16] MEDS: CAPTOPRIL 25 MG TAB PO SCH ×3 (08:42→20:17)
[2018-10-16] MEDS: ENOXAPARIN INJ 40 MG/0.4 ML SYR SQ SCH (08:43)
[2018-10-16] MEDS: SPIRONOLACTONE 25 MG TAB PO SCH (08:44)
[2018-10-16] MEDS: MULTIVITAMIN TAB PO SCH (08:44)
[2018-10-16] MEDS: PANTOprazole 40 MG TAB PO SCH (08:44)
[2018-10-16] MEDS: predniSONE 20 MG TAB PO SCH (08:44)
--- NOTE | 2018-10-16 10:50 | Hospitalist Progress Note ---
Date of Service October 16, 2018 Assessment & Plan (1) Acute hypoxemic respiratory failure: Acute on chronic Secondary to decompensated heart failure hx diastolic dysfunction (EF 65-70% TTE 2018) 40 lb weight gain following recent confinement from March 2018 Uncontrolled BP, dietary indiscretion, NSAID intake, home steroid Rx contributory to fluid retention chronic respiratory failure secondary to steroid dependent COPD on home O2 CHRISTIE on CPAP Chronic lung disease not in acute exacerbation past tobacco abuse LE cellulitis in the setting of chronic lymphedema, Wound Cx +Staph and Proteus- On Doxy, will add Rocephin Steroid-induced hyperglycemia Rule out DM Functional disability chronic anemia, hemoglobin at baseline RLL Mass on Previous scan 02/2018-CTC yesterday shows Mass is gone PCU Supplemental O2 Diuretic Rx Strict IOs, daily weights, CHF education Update TTE, Cardiology consult RE CHF Titrate antihypertensive meds Consider decreasing daily prednisone dose for COPD Hold home NSAIDs LE venous Doppler neg for DVT Check hemoglobin A1c PT OT eval DVT prophylaxis. Lovenox subcu DNR Patient stepdaughter requesting updates from providers. Ms. Ina Mullins, contact #[phone]. Updated Step DTR today Subjective 73 yo obese male c PMH of chronic diastolic heart failure (EF 65-70% TTE 2018), chronic respiratory failure secondary to steroid dependent COPD on home O2, CHRISTIE on CPAP, past tobacco abuse, hypertension, PSVT as per records, chronic lymphedema, chronic anemia baseline hemoglobin of 8. Recent confinement February 2018 for COPD exacerbation. Consolidation/possible postobstructive pneumonia noted on imaging during confinement. Patient refused workup bronchoscopic eval. And also found to be at risk for aspiration during confinement. Patient discharged to [facility] subsequently discharged back home. Patient noted worsening shortness of breath, fluid retention, leg swelling/ redness in the last week. Patient denies chest pain. No unusual cough symptoms. Admits to dietary indiscretion. Patient family worried that patient does not move around as much. No fever, no chills. In ER patient given IV Lasix for CHF. ROS-No Headache, No Visual Changes, No Fever, No Chills, No Neck Pain or Stiffness, No Chest Pain, No Palpitations, + SOB, + STEPHENS, No Cough, No Sputum, No Wheezing, No Abdominal Pain, No Diarrhea, No Hematemesis, No Hemoptysis, No Unexpected Weight Loss, No Flank pain, No Melena, No Hematochezia, No Frequency , No Urgency, No Burning, No Hematuria, No Rashes, No Diaphoresis. Appetite is Normal, C/O LE edema Physical Exam Gen-AAO x 3, NAD, Afebrile, Morbidly Obese Head-NCAT, EOMI, PERRLA, Anicteric Sclera, No Posterior Pharyngeal Erythema Neck-Supple, No JVD, No Thyromegaly, No Masses, No LAD, No Bruits Lungs-Clear to Auscultation Bilaterally, No Rales, No Rhonchi, No Wheezing, No Crepitus Chest-No S4, +S1, +S2, No S3, No Murmurs, No Rubs, No Gallops, No Ectopy Abdomen-Soft, Bowel Sounds Present, Non Tender, Non Distended, No Hepatomegaly, No Splenomegaly, No Palpable Masses, No Rebound, No Rigidity, No Guarding Musculoskeletal-Full Range of Motion Bilaterally, No CVAT Extremities-+B/L LE and Foot edema c Erythema, Chronic Stasis changes, not much change from 2/5 Nuero-Cranial Nerves II-XII grossly intact, Motor WNL, DTRs WNL, Strength WNL, No Focal Psych-Normal Mood Physical Exam 2 Vital Signs (Past 24 Hours): Last Vital Signs Temp 36.4 C L 10/16/18 08:07 Pulse 81 10/16/18 08:07 Resp 22 10/16/18 08:07 BP 148/69 H 10/16/18 08:07 Pulse Ox 95 10/16/18 08:07 Results & Data Laboratory Results Current Diagnoses Morbid (severe) obesity with alveolar hypoventilation (10/14/18) Obstructive sleep apnea (adult) (pediatric) (10/14/18) Essential (primary) hypertension (10/14/18) Supraventricular tachycardia (10/14/18) Right heart failure, unspecified (10/14/18) Chronic obstructive pulmonary disease, unspecified (10/14/18) Acute respiratory failure with hypoxia (10/14/18) Allergies No Known Allergies Allergy (Verified 10/14/18 21:24) Height/Weight/Isolation Height 5 ft 10 in Weight 197.2 kg CBC 10/14/18 10/14/18 10/14/18 17:00 17:00 17:00 WBC 12.00 H RBC 3.20 L Hgb 8.8 L POC Hgb Hct 33.1 L POC Hct MCV 103.4 H MCH 27.5 MCHC 26.6 L RDW Std Deviation RDW Coeff of Kate Plt Count 404 H MPV Immature Gran % (Auto) 0.3 Neut % (Auto) 74.5 Lymph % (Auto) 14.2 [place] % (Auto) 9.8 Eos % (Auto) 0.9 Baso % (Auto) 0.3 Immature Gran # (Auto) 0.03 H Neut # (Auto) 8.96 H Lymph # (Auto) 1.70 [place] # (Auto) 1.17 H Eos # (Auto) 0.11 Baso # (Auto) 0.03 Polychromasia 1+ Hypochromasia Present Anisocytosis Ovalocytes 1+ Stomatocytes PT INR APTT 25.2 PTT Ratio 1.0 VBG pH VBG pCO2 VBG pO2 VBG HCO3 VBG O2 Saturation VBG Base Excess Barometric Pressure POC Sodium Sodium 141 POC Potassium Potassium 3.9 POC Chloride Chloride 102 Carbon Dioxide 35 H POC Total CO2 Anion Gap 4.0 POC Anion Gap POC BUN BUN 21 H Creatinine 1.23 POC Creatinine Est Cr Clr Drug Dosing 76.0 Est GFR ( Amer) 67.6 Est GFR (Non-Af Amer) 58.3 BUN/Creatinine Ratio 16.9 Glucose 111 H POC Glucose (other) Estimat Average Glucose Hemoglobin A1c Calcium 8.4 L POC Ioniz Calcium Deric Magnesium 2.4 Total Bilirubin 0.4 AST 12 L ALT 14 Alkaline Phosphatase 78 Troponin I 0.025 NT-Pro-B Natriuret Pep 2156 H Total Protein 6.3 L Albumin 3.2 L Globulin 3.1 Albumin/Globulin Ratio 1.0 Lipase 112 TSH 1.810 Urine Color Urine Appearance Urine pH Ur Specific [place] Urine Protein Urine Glucose (UA) Urine Ketones Urine Blood Urine Nitrite Urine Bilirubin Urine Urobilinogen Ur Leukocyte Esterase Hepatitis C Ab Screen 10/14/18 10/14/18 10/14/18 17:00 17:53 18:37 WBC RBC Hgb POC Hgb 9.2 L Hct POC Hct 27 L MCV MCH MCHC RDW Std Deviation RDW Coeff of Kate Plt Count MPV Immature Gran % (Auto) Neut % (Auto) Lymph % (Auto) [place] % (Auto) Eos % (Auto) Baso % (Auto) Immature Gran # (Auto) Neut # (Auto) Lymph # (Auto) [place] # (Auto) Eos # (Auto) Baso # (Auto) Polychromasia Hypochromasia Anisocytosis Ovalocytes Stomatocytes PT INR APTT PTT Ratio VBG pH 7.34 L VBG pCO2 71 H VBG pO2 22 VBG HCO3 37 VBG O2 Saturation < 60.0 VBG Base Excess 9.3 Barometric Pressure 730.1 POC Sodium 143 Sodium POC Potassium 4.1 Potassium POC Chloride 97 L Chloride Carbon Dioxide POC Total CO2 34 H Anion Gap POC Anion Gap 17.0 POC BUN 21 H BUN Creatinine POC Creatinine 1.2 Est Cr Clr Drug Dosing Est GFR ( Amer) Est GFR (Non-Af Amer) BUN/Creatinine Ratio Glucose POC Glucose (other) 106 H Estimat Average Glucose Hemoglobin A1c Calcium POC Ioniz Calcium Deric 1.15 Magnesium Total Bilirubin AST ALT Alkaline Phosphatase Troponin I NT-Pro-B Natriuret Pep Total Protein Albumin Globulin Albumin/Globulin Ratio Lipase TSH Urine Color Urine Appearance Urine pH Ur Specific [place] Urine Protein Urine Glucose (UA) Urine Ketones Urine Blood Urine Nitrite Urine Bilirubin Urine Urobilinogen Ur Leukocyte Esterase Hepatitis C Ab Screen Neg 10/14/18 10/14/18 10/15/18 19:16 20:00 05:43 WBC 9.65 11.81 H RBC 3.03 L 3.01 L Hgb 8.2 L 8.2 L POC Hgb Hct 30.7 L 30.5 L POC Hct MCV 101.3 H 101.3 H MCH 27.1 27.2 MCHC 26.7 L 26.9 L RDW Std Deviation 56.1 H 55.7 H RDW Coeff of Kate 15.4 H 15.4 H Plt Count 347 313 MPV 10.3 10.7 H Immature Gran % (Auto) 0.3 Neut % (Auto) 83.5 Lymph % (Auto) 7.9 [place] % (Auto) 8.1 Eos % (Auto) 0.0 Baso % (Auto) 0.2 Immature Gran # (Auto) 0.04 H Neut # (Auto) 9.86 H Lymph # (Auto) 0.93 L [place] # (Auto) 0.96 H Eos # (Auto) 0.00 Baso # (Auto) 0.02 Polychromasia 1+ Hypochromasia Anisocytosis Present Ovalocytes Stomatocytes 1+ PT INR APTT PTT Ratio VBG pH VBG pCO2 VBG pO2 VBG HCO3 VBG O2 Saturation VBG Base Excess Barometric Pressure POC Sodium Sodium POC Potassium Potassium POC Chloride Chloride Carbon Dioxide POC Total CO2 Anion Gap POC Anion Gap POC BUN BUN Creatinine POC Creatinine Est Cr Clr Drug Dosing Est GFR ( Amer) Est GFR (Non-Af Amer) BUN/Creatinine Ratio Glucose POC Glucose (other) Estimat Average Glucose Hemoglobin A1c Calcium POC Ioniz Calcium Deric Magnesium Total Bilirubin AST ALT Alkaline Phosphatase Troponin I NT-Pro-B Natriuret Pep Total Protein Albumin Globulin Albumin/Globulin Ratio Lipase TSH Urine Color Dark Yellow Urine Appearance Clear Urine pH 5.5 Ur Specific [place] 1.019 Urine Protein Negative Urine Glucose (UA) Negative Urine Ketones Trace H Urine Blood Negative Urine Nitrite Negative Urine Bilirubin Negative Urine Urobilinogen Negative Ur Leukocyte Esterase Negative Hepatitis C Ab Screen 10/15/18 10/15/18 10/15/18 05:43 05:43 05:43 WBC RBC Hgb POC Hgb Hct POC Hct MCV MCH MCHC RDW Std Deviation RDW Coeff of Kate Plt Count MPV Immature Gran % (Auto) Neut % (Auto) Lymph % (Auto) [place] % (Auto) Eos % (Auto) Baso % (Auto) Immature Gran # (Auto) Neut # (Auto) Lymph # (Auto) [place] # (Auto) Eos # (Auto) Baso # (Auto) Polychromasia Hypochromasia Anisocytosis Ovalocytes Stomatocytes PT 10.7 INR 1.1 APTT 25.0 PTT Ratio 1.0 VBG pH VBG pCO2 VBG pO2 VBG HCO3 VBG O2 Saturation VBG Base Excess Barometric Pressure POC Sodium Sodium 142 POC Potassium Potassium 4.2 POC Chloride Chloride 102 Carbon Dioxide 36 H POC Total CO2 Anion Gap 4.0 POC Anion Gap POC BUN BUN 22 H Creatinine 1.17 POC Creatinine Est Cr Clr Drug Dosing 100.4 Est GFR ( Amer) 71.8 Est GFR (Non-Af Amer) 61.9 BUN/Creatinine Ratio 19.1 Glucose 145 H POC Glucose (other) Estimat Average Glucose Hemoglobin A1c Calcium 8.5 POC Ioniz Calcium Deric Magnesium Total Bilirubin AST ALT Alkaline Phosphatase Troponin I 0.025 NT-Pro-B Natriuret Pep Total Protein Albumin Globulin Albumin/Globulin Ratio Lipase TSH Urine Color Urine Appearance Urine pH Ur Specific [place] Urine Protein Urine Glucose (UA) Urine Ketones Urine Blood Urine Nitrite Urine Bilirubin Urine Urobilinogen Ur Leukocyte Esterase Hepatitis C Ab Screen 10/15/18 10/16/18 10/16/18 05:43 05:56 05:56 WBC 9.64 RBC 2.99 L Hgb 8.3 L POC Hgb Hct 30.2 L POC Hct MCV 101.0 H MCH 27.8 MCHC 27.5 L RDW Std Deviation 55.3 H RDW Coeff of Kate 15.3 H Plt Count 364 MPV 10.3 Immature Gran % (Auto) Neut % (Auto) Lymph % (Auto) [place] % (Auto) Eos % (Auto) Baso % (Auto) Immature Gran # (Auto) Neut # (Auto) Lymph # (Auto) [place] # (Auto) Eos # (Auto) Baso # (Auto) Polychromasia Hypochromasia Anisocytosis Ovalocytes Stomatocytes PT INR APTT PTT Ratio VBG pH VBG pCO2 VBG pO2 VBG HCO3 VBG O2 Saturation VBG Base Excess Barometric Pressure POC Sodium Sodium 142 POC Potassium Potassium 3.4 L D POC Chloride Chloride 100 Carbon Dioxide 37 H POC Total CO2 Anion Gap 5.0 POC Anion Gap POC BUN BUN 22 H Creatinine 1.18 POC Creatinine Est Cr Clr Drug Dosing 15.3 Est GFR ( Amer) 71.0 Est GFR (Non-Af Amer) 61.3 BUN/Creatinine Ratio 18.9 Glucose 99 POC Glucose (other) Estimat Average Glucose 88 Hemoglobin A1c 4.7 Calcium 8.2 L POC Ioniz Calcium Deric Magnesium Total Bilirubin AST ALT Alkaline Phosphatase Troponin I NT-Pro-B Natriuret Pep Total Protein Albumin Globulin Albumin/Globulin Ratio Lipase TSH Urine Color Urine Appearance Urine pH Ur Specific Nurs[place] Urine Protein Urine Glucose (UA) Urine Ketones Urine Blood Urine Nitrite Urine Bilirubin Urine Urobilinogen Ur Leukocyte Esterase Hepatitis C Ab Screen Chemistry 10/14/18 10/15/18 10/16/18 17:00 05:43 05:56 Sodium 141 142 142 Potassium 3.9 4.2 3.4 L D Chloride 102 102 100 Carbon Dioxide 35 H 36 H 37 H Anion Gap 4.0 4.0 5.0 BUN 21 H 22 H 22 H Creatinine 1.23 1.17 1.18 Glucose 111 H 145 H 99 Urinalysis 10/14/18 20:00 Urine Color Dark Yellow Urine Appearance Clear Urine pH 5.5 Ur Specific [place] 1.019 Urine Protein Negative Urine Glucose (UA) Negative Urine Ketones Trace H Urine Blood Negative Urine Nitrite Negative Urine Bilirubin Negative Microbiology 10/14/18 17:00 Leg,Left Gram Stain - Final 10/14/18 17:00 Leg,Left Wound Culture - Preliminary Staphylococcus aureus Proteus mirabilis
[2018-10-16 11:19] LABS: Estimated Average Glucose 88 mg/dl; Hemoglobin A1C 4.7 % (4.5-5.6)
--- NOTE | 2018-10-16 11:57 | Cardiology Progress Note ---
Date of Service October 16, 2018 Assessment & Plan (1) Pickwickian syndrome: Patient has had gradual decline of several months and greater than 40 pound weight gain. Recommendations: Continue pulmonary supplementation with CPAP and oxygen Continue IV diuretics. Change metoprolol to Toprol-XL with titrate upward for control of heart rate and SVT. Will reduce captopril to allow above. Add spironolactone to her regimen. Sodium and fluid restriction will be mandatory in this patient ultimate goals additional weight loss Has had brisk diuresis, will continue. Increase spironolactone dosing, supplement potassium, increase Toprol dosing. (2) COPD (chronic obstructive pulmonary disease): (3) CHRISTIE (obstructive sleep apnea): (4) Right heart failure: (5) Paroxysmal SVT (supraventricular tachycardia): (6) Hypertension: Subjective Patient seen and examined chart medications telemetry reviewed. Patient has modified significant diuresis overnight and continues to have brisk urine output. Slight reduction in lower extremity edema but no overt change in physical examination. Patient denies specific complaints Physical Exam 2 Vital Signs (Past 24 Hours): Last Vital Signs Temp 36.8 C 10/16/18 11:21 Pulse 78 10/16/18 11:21 Resp 16 10/16/18 11:21 BP 145/88 H 10/16/18 11:21 Pulse Ox 92 10/16/18 11:21 Physical Exam: Patient is a morbidly obese male receiving respiratory treatment. No acute complaints. Vital signs as above HEENT exam is normocephalic and atraumatic, nares without discharge throat generally clear with poor visualization of the uvula Neck very thick no distinct jugular venous distention no audible carotid bruit Lungs markedly diminished breath sounds with poor respiratory flow Cardiovascular exam regular occasional ventricular ectopic beats no audible murmur rub with distant heart sounds Abdomen is soft with moderate distention large panniculus no palpable mass or hepatosplenomegaly Extremities 3+ edema to mid thighs ruborous changes bilateral lower extremities and feet. Distal pulses are palpable Results & Data Laboratory Results Laboratory Results - last 24 hr 10/15/18 10/16/18 10/16/18 05:43 05:56 05:56 WBC 9.64 RBC 2.99 L Hgb 8.3 L Hct 30.2 L MCV 101.0 H MCH 27.8 MCHC 27.5 L RDW Std Deviation 55.3 H RDW Coeff of Kate 15.3 H Plt Count 364 MPV 10.3 Sodium 142 Potassium 3.4 L D Chloride 100 Carbon Dioxide 37 H Anion Gap 5.0 BUN 22 H Creatinine 1.18 Est Cr Clr Drug Dosing 15.3 Est GFR ( Amer) 71.0 Est GFR (Non-Af Amer) 61.3 BUN/Creatinine Ratio 18.9 Glucose 99 Estimat Average Glucose 88 Hemoglobin A1c 4.7 Calcium 8.2 L 10/16/18 05:56 WBC RBC Hgb Hct MCV MCH MCHC RDW Std Deviation RDW Coeff of Kate Plt Count MPV Sodium Potassium Chloride Carbon Dioxide Anion Gap BUN Creatinine Est Cr Clr Drug Dosing Est GFR ( Amer) Est GFR (Non-Af Amer) BUN/Creatinine Ratio Glucose Estimat Average Glucose 88 Hemoglobin A1c 4.7 Calcium
[2018-10-16] MEDS ORDERED: POTASSIUM CHLORIDE 20 MEQ TABCR PO STA (12:00)
[2018-10-16] MEDS ORDERED: SPIRONOLACTONE 25 MG TAB PO ONE (12:00)
[2018-10-16] MEDS: cefTRIAXone SODIUM 2,000 MG in DEXTROSE 5% 50 ML IV SCH (12:52)
[2018-10-16] MEDS: POTASSIUM CHLORIDE 10 MEQ TABCR PO SCH (20:21)
[2018-10-16] MEDS: METOPROLOL SUCC 25MG EXT REL TAB PO SCH (20:22)
[2018-10-17] MEDS: IPRATROPIUM BROMIDE NEB SOLN 0.02% 2.5 ML VIAL INH SCH ×4 (01:47→19:00)
[2018-10-17] MEDS: LEVALBUTEROL 1.25MG/0.5ML NEB INH SCH ×4 (01:47→19:00)
[2018-10-17 07:29] LABS: Albumin Level 2.8 gm/dl (3.4-5.0); BUN Creatinine Ratio 17.8 (10-20); Calcium 8.5 mg/dl (8.5-10.1); Creatinine Clr Calc Pharmacy 96.8 ml/min; Est GFR (African American) 70.3; Est GFR (Non-African American) 60.7; Potassium 3.5 mmol/L (3.5-5.1)
[2018-10-17 07:31] LABS: Albumin Globulin Ratio 0.9 (0.9-2); Bilirubin,Total 0.3 mg/dl (0.2-1); Globulin 3.1 gm/dl (2.5-4.0); Hematocrit (blood only) 31.1 % (42-52); Hemoglobin 8.5 g/dL (14.0-18.0); Mean Corpuscular Hgb Conc 27.3 g/dL (32-36); Mean Corpuscular Volume 100.3 fL (80-100); Mean Platelet Volume 10.3 fL (7.4-10.4); Platelet Count 357 K/uL (130-400); RDW Coefficient of Variation 15.3 % (11.5-14.5); RDW Standard Deviation 56.2 fL (36.4-46.3); Total Protein 5.9 gm/dl (6.4-8.2); White Blood Count 8.54 K/uL (4.8-10.8)
[2018-10-17] MEDS ORDERED: SPIRONOLACTONE 25 MG TAB PO SCH (09:00)
[2018-10-17] MEDS: FERROUS SULFATE 325 MG TAB PO SCH ×2 (09:05→20:18)
[2018-10-17] MEDS: METOPROLOL SUCC 25MG EXT REL TAB PO SCH ×2 (09:05→20:20)
[2018-10-17] MEDS: ASPIRIN 81 MG ECTAB PO SCH (09:06)
[2018-10-17] MEDS: MULTIVITAMIN TAB PO SCH (09:06)
[2018-10-17] MEDS: predniSONE 20 MG TAB PO SCH (09:06)
[2018-10-17] MEDS: PANTOprazole 40 MG TAB PO SCH (09:06)
[2018-10-17] MEDS: COLCHICINE 0.6 MG TAB PO SCH (09:06)
[2018-10-17] MEDS: POTASSIUM CHLORIDE 10 MEQ TABCR PO SCH ×2 (09:06→20:17)
[2018-10-17] MEDS: CAPTOPRIL 25 MG TAB PO SCH ×3 (09:07→20:23)
[2018-10-17] MEDS: ENOXAPARIN INJ 40 MG/0.4 ML SYR SQ SCH (09:12)
[2018-10-17] MEDS: FUROSEMIDE 60 MG in SYRINGE 0 ML IV SCH ×2 (09:13→20:19)
[2018-10-17] MEDS: DOXYCYCLINE HYCLATE 100 MG CAP PO SCH (09:14)
--- NOTE | 2018-10-17 11:14 | Hospitalist Progress Note ---
Date of Service October 17, 2018 Assessment & Plan (1) Acute hypoxemic respiratory failure: Acute on chronic Secondary to decompensated heart failure hx diastolic dysfunction (EF 65-70% TTE 2018) 40 lb weight gain following recent confinement from March 2018 Weight down 6 Kg so far Uncontrolled BP, dietary indiscretion, NSAID intake, home steroid Rx contributory to fluid retention chronic respiratory failure secondary to steroid dependent COPD on home O2 CHRISTIE on CPAP Chronic lung disease not in acute exacerbation past tobacco abuse LE cellulitis in the setting of chronic lymphedema, Wound Cx +Staph and Proteus- On Doxy and Rocephin Morbid Obesity BMI 62 Steroid-induced hyperglycemia Functional disability chronic anemia, hemoglobin at baseline RLL Mass on Previous scan 02/2018-[facility] shows RLL Mass is gone Diuretic Rx-Renal eval, Albumin and Lasix Strict IOs, daily weights, CHF education TTE Grade II Diastolic dysfunction, EF 55-60%, Cardiology on case Hold home NSAIDs LE venous Doppler neg for DVT A1c PT OT DVT prophylaxis. Lovenox subcu DNR Patient stepdaughter requesting updates from providers. Ms. Ina Mullins, contact #[phone]. Updated Step DTR today Subjective 73 yo obese male c PMH of chronic diastolic heart failure (EF 65-70% TTE 2018), chronic respiratory failure secondary to steroid dependent COPD on home O2, CHRISTIE on CPAP, past tobacco abuse, hypertension, PSVT as per records, chronic lymphedema, chronic anemia baseline hemoglobin of 8. Recent confinement February 2018 for COPD exacerbation. Consolidation/possible postobstructive pneumonia noted on imaging during confinement. Patient refused workup bronchoscopic eval. And also found to be at risk for aspiration during confinement. Patient discharged to [facility] subsequently discharged back home. Patient noted worsening shortness of breath, fluid retention, leg swelling/ redness in the last week. Patient denies chest pain. No unusual cough symptoms. Admits to dietary indiscretion. Patient family worried that patient does not move around as much. No fever, no chills. In ER patient given IV Lasix for CHF. ROS-No Headache, No Visual Changes, No Fever, No Chills, No Neck Pain or Stiffness, No Chest Pain, No Palpitations, + SOB, + STEPHENS, No Cough, No Sputum, No Wheezing, No Abdominal Pain, No Diarrhea, No Hematemesis, No Hemoptysis, No Unexpected Weight Loss, No Flank pain, No Melena, No Hematochezia, No Frequency , No Urgency, No Burning, No Hematuria, No Rashes, No Diaphoresis. Appetite is Normal, C/O LE edema Physical Exam Gen-AAO x 3, NAD, Afebrile, Morbidly Obese Head-NCAT, EOMI, PERRLA, Anicteric Sclera, No Posterior Pharyngeal Erythema Neck-Supple, No JVD, No Thyromegaly, No Masses, No LAD, No Bruits Lungs-Clear to Auscultation Bilaterally, No Rales, No Rhonchi, No Wheezing, No Crepitus Chest-No S4, +S1, +S2, No S3, No Murmurs, No Rubs, No Gallops, No Ectopy Abdomen-Soft, Bowel Sounds Present, Non Tender, Non Distended, No Hepatomegaly, No Splenomegaly, No Palpable Masses, No Rebound, No Rigidity, No Guarding Musculoskeletal-Full Range of Motion Bilaterally, No CVAT Extremities-+B/L LE and Foot edema c Erythema, mild improvement, Chronic Stasis changes Nuero-Cranial Nerves II-XII grossly intact, Motor WNL, DTRs WNL, Strength WNL, No Focal Psych-Normal Mood Physical Exam 2 Vital Signs (Past 24 Hours): Last Vital Signs Temp 36.7 C 10/17/18 08:00 Pulse 72 10/17/18 08:00 Resp 16 10/17/18 08:00 BP 117/68 10/17/18 08:00 Pulse Ox 93 10/17/18 08:00 Results & Data Laboratory Results Current Diagnoses Morbid (severe) obesity with alveolar hypoventilation (10/14/18) Obstructive sleep apnea (adult) (pediatric) (10/14/18) Essential (primary) hypertension (10/14/18) Supraventricular tachycardia (10/14/18) Right heart failure, unspecified (10/14/18) Chronic obstructive pulmonary disease, unspecified (10/14/18) Acute respiratory failure with hypoxia (10/14/18) Allergies No Known Allergies Allergy (Verified 10/14/18 21:24) Height/Weight/Isolation Height 5 ft 10 in Weight 195.3 kg Chemistry 10/16/18 10/17/18 05:56 06:14 Sodium 142 140 Potassium 3.4 L D 3.5 Chloride 100 99 Carbon Dioxide 37 H 39 H Anion Gap 5.0 2.0 L BUN 22 H 21 H Creatinine 1.18 1.19 Glucose 99 95 Microbiology 10/14/18 17:00 Leg,Left Gram Stain - Final 10/14/18 17:00 Leg,Left Wound Culture - Final Staphylococcus aureus Proteus mirabilis Pseudomonas aeruginosa
[2018-10-17] MEDS: cefTRIAXone SODIUM 2,000 MG in DEXTROSE 5% 50 ML IV SCH (11:32)
--- NOTE | 2018-10-17 13:02 | Cardiology Progress Note ---
Date of Service October 17, 2018 Assessment & Plan (1) Pickwickian syndrome: Patient has had gradual decline of several months and greater than 40 pound weight gain. With worsening edema secondary to respiratory issues/ diastolic dysfunction Since initiating diuretic therapy patient's had very brisk diuresis, still remains massively volume overloaded. Weight is down nearly 5 kg. Developing contraction alkalosis. Will supplement potassium to aid in the above hold a.m. furosemide until examined. (2) COPD (chronic obstructive pulmonary disease): (3) CHRISTIE (obstructive sleep apnea): (4) Right heart failure: (5) Paroxysmal SVT (supraventricular tachycardia): (6) Hypertension: Subjective Patient seen and examined chart medications telemetry reviewed. Patient has modified significant diuresis overnight and continues to have brisk urine output. Slight reduction in lower extremity edema but no overt change in physical examination. Patient denies specific complaints Physical Exam 2 Vital Signs (Past 24 Hours): Last Vital Signs Temp 37.0 C 10/17/18 11:13 Pulse 71 10/17/18 11:13 Resp 14 10/17/18 11:13 BP 109/50 L 10/17/18 11:13 Pulse Ox 95 10/17/18 11:33 Physical Exam: Patient is a morbidly obese male sitting out of bed in chair no acute complaints. Vital signs as above HEENT exam is normocephalic and atraumatic, nares without discharge throat generally clear with poor visualization of the uvula Neck very thick no distinct jugular venous distention no audible carotid bruit Lungs markedly diminished breath sounds with poor respiratory flow Cardiovascular exam regular occasional ventricular ectopic beats no audible murmur rub with distant heart sounds Abdomen is soft with moderate distention large panniculus no palpable mass or hepatosplenomegaly. Abdomen less distended slightly today Extremities 2-3 + edema to mid thighs ruborous changes bilateral lower extremities and feet. Distal pulses are palpable leg edema diminished mildly Results & Data Laboratory Results Laboratory Results - last 24 hr 10/17/18 10/17/18 06:14 06:14 WBC 8.54 RBC 3.10 L Hgb 8.5 L Hct 31.1 L MCV 100.3 H MCH 27.4 MCHC 27.3 L RDW Std Deviation 56.2 H RDW Coeff of Kate 15.3 H Plt Count 357 MPV 10.3 Sodium 140 Potassium 3.5 Chloride 99 Carbon Dioxide 39 H Anion Gap 2.0 L BUN 21 H Creatinine 1.19 Est Cr Clr Drug Dosing 96.8 Est GFR ( Amer) 70.3 Est GFR (Non-Af Amer) 60.7 BUN/Creatinine Ratio 17.8 Glucose 95 Calcium 8.5 Total Bilirubin 0.3 AST 11 L ALT 12 Alkaline Phosphatase 71 Total Protein 5.9 L Albumin 2.8 L Globulin 3.1 Albumin/Globulin Ratio 0.9
[2018-10-17] MEDS ORDERED: POTASSIUM CHLORIDE 10 MEQ TABCR PO STA (13:09)
[2018-10-17] MEDS: CEFEPIME 2,000 MG in SYRINGE 7.5 ML IV SCH (13:58)
--- NOTE | 2018-10-17 16:45 | Nephrology Consultation ---
Date of Consultation October 17, 2018 Assessment & Plan (1) CHF exacerbation: in setting of pickwickian syndrome/ R HF/ diastolic HF -wrote to limit sodium and fluid intake -daily bmp >> he is at significant risk for ASHUTOSH given IV contrast 2 days back and acei, spironolactone, diuresis -for now would leave diuretics as they are > 6 KG fluid removal in 48 hrs jagjit w / recent IV contrast is more than acceptable -wrote to hold ACEI/spironolactone in AM until labs post -cont strict I/O -cont daily weights -- aim for standing wt Present on Admission?: Yes History of Present Illness Reason for Consultation: volume overload Requesting Physician: Dr Campuzano Attending Physician: Bob Campuzano, DO History of Present Illness 73 y/o M whom I'm asked to see for mgt of volume overload. PMH includes chronic diastolic HF, chronic respiratory failure w/ steroid dependent COPD on 02/04 02NC, CHRISTIE on cpap, HTN, chronic lymphedema, HTN. He was admitted here on for acute heart and respiratory failure w/ BLE cellulitis. He was taking nsaids prior to admission prn. We do not have standing wts on this pt but bedscales show downtrend from 201 on 10/15 > 195 kg today. His baseline creatinine is 1.2 and he has remained at baseline. he is getting lasix 60 mg IV since 10/15 as well as cefepime, steroids. Also on spironolactone 25 mg daily (started today), metoprolol, captopril 12.5 mg tid started 10/15, K supplements started yesterday 10 mEq bid. Allergies Allergy/AdvReac Type Severity Reaction Status Date / Time No Known Allergies Allergy Verified 10/14/18 21:24 Home Medications Home Medications Medication Instructions Recorded Confirmed Type albuterol sulfate 3 ml CONTINUOUS NEBULIZATION Q4H 10/14/18 10/14/18 History PRN aspirin [Aspir-81] 81 mg PO DAILY 10/14/18 10/14/18 History captopril 25 mg PO TID 10/14/18 10/14/18 History colchicine 0.6 mg PO DAILY 10/14/18 10/14/18 History diclofenac sodium 75 mg PO BID PRN 10/14/18 10/14/18 History ferrous sulfate 325 mg PO BID 10/14/18 10/14/18 History furosemide 20 mg PO BID 10/14/18 10/14/18 History guaifenesin 600 mg PO Q12H 10/14/18 10/14/18 History metoprolol tartrate 50 mg PO BID 10/14/18 10/14/18 History multivitamin [Multiple Vitamins] 1 tab PO DAILY 10/14/18 10/14/18 History omeprazole 40 mg PO DAILY 10/14/18 10/14/18 History prednisone 20 mg PO DAILY 10/14/18 10/14/18 History ranitidine HCl 150 mg PO BID 10/14/18 10/14/18 History tiotropium bromide [Spiriva with 1 cap INHALATION DAILY 10/14/18 10/14/18 History HandiHaler] tramadol 50 mg PO Q6H PRN 10/14/18 10/14/18 History Patient History Medical History Hypertension (Chronic) Dyslipidemia (Chronic) Paroxysmal SVT (supraventricular tachycardia) (Chronic) COPD (chronic obstructive pulmonary disease) (Chronic) Oxygen dependent (Chronic) Lymphedema (Chronic) CKD (chronic kidney disease), stage III (Chronic) CHRISTIE (obstructive sleep apnea) (Chronic) Iron deficiency anemia (Chronic) Surgical History H/O left knee surgery (Chronic) H/O right knee surgery (Chronic) History of colon resection (Chronic) "Due to diverticulitis" History of cholecystectomy (Chronic) Social History marital status: Current Living Situation: Spouse current occupation: Retired truck sales manager Other Information That Helps Us Care for You: No Feels Safe at Home: Yes Safety Concerns: Feels Safe At This Time Smoking Status: Former smoker Do You Dip or Chew Tobacco: No Smoking End Date: about 2013 Hx Alcohol Use: No Hx Substance Use: No Beliefs That Will Affect Care: None Communication Ability: Effective Review of Systems Constitutional: as per Subjective / HPI, + fatigue and + weakness; no fever Eyes: no worsening vision Ear, Nose, Mouth, Throat: + dry mouth Respiratory: + dyspnea on exertion; no cough Cardiovascular: + dyspnea on exertion and + edema; no chest pain and no palpitations Gastrointestinal: no abdominal pain, no vomiting, no dysphagia and no change in bowel habits Genitourinary (Male): no dysuria, no difficulty urinating and no urinary hesitancy Musculoskeletal: + swelling and + stiffness weeping edema Neurologic: + gait abnormality and + generalized weakness; no dizziness and no confusion Psychiatric: no behavioral changes Endocrine: + fatigue Hematologic / Lymphatic: no easy bleeding Physical Exam 2 Vital Signs (Past 24 Hours): Last Vital Signs Temp 36.8 C 10/17/18 15:36 Pulse 77 10/17/18 15:36 Resp 18 10/17/18 15:36 BP 125/72 10/17/18 15:36 Pulse Ox 99 10/17/18 15:36 Constitutional: well developed, + morbidly obese and + edematous sitting in armchair on [id number], A& 0 x 3 Eyes: EOM intact bilaterally ENMT: Ears: no external ear abnormality Nose: no external nose abnormality Mouth: + dry oral mucous membranes Neck: no nuchal rigidity Respiratory: normal respiratory effort Auscultation: + diminished lung sounds (markedly) Gastrointestinal (Abdomen): Inspection/Auscultation: normal bowel sounds Percussion/Palpation: abdomen soft; abdomen nontender Musculoskeletal: Extremities: strength 5/5 throughout Skin: + turgor decreased and + skin tightening weeping edema Neurologic: bansal, fluent but limited speech, no tremor Psychiatric: Affect: + flat affect Insight: + limited insight Genitourinary: vaughn w/ some urine Results & Data Laboratory Results Abnormal lab results 10/17/18 10/17/18 Range/Units 06:14 06:14 RBC 3.10 L (4.7-6.1) M/uL Hgb 8.5 L (14.0-18.0) g/dL Hct 31.1 L (42-52) % MCV 100.3 H (80-100) fL MCHC 27.3 L (32-36) g/dL RDW Std Deviation 56.2 H (36.4-46.3) fL RDW Coeff of Kate 15.3 H (11.5-14.5) % Carbon Dioxide 39 H (21-32) mmol/L Anion Gap 2.0 L (3-11) BUN 21 H (7-18) mg/dl AST 11 L (15-37) U/L Total Protein 5.9 L (6.4-8.2) gm/dl Albumin 2.8 L (3.4-5.0) gm/dl Diagnostic Findings Chest CT PE protocol 10/15 1. Right lower lobe mass-like opacity shown on CT of March 05, 2018 is no longer visualized. This suggests resolution of pneumonia. Mild residual opacity favors scarring or atelectasis. A precautionary follow-up chest CT in 6 months is recommended given the significant artifact on this exam. 2. Moderate cardiomegaly. Extensive coronary artery calcification. 3. Trace right pleural effusion. 4. Linear opacities within the lungs which favor atelectasis. cxr admission > Congestive heart failure. Prominent basilar pulmonary vasculature versus basilar infiltrative change. BL dopplers >> no DVT either LE _ (1) CHF exacerbation Heart failure type: unspecified Qualified Code(s): I50.9 - Heart failure, unspecified
[2018-10-17] MEDS: ACETAMINOPHEN 325 MG TAB PO PRN (20:19)
[2018-10-18] MEDS: CEFEPIME 2,000 MG in SYRINGE 7.5 ML IV SCH ×2 (01:08→14:04)
[2018-10-18] MEDS: LEVALBUTEROL 1.25MG/0.5ML NEB INH SCH ×4 (02:16→19:17)
[2018-10-18] MEDS: IPRATROPIUM BROMIDE NEB SOLN 0.02% 2.5 ML VIAL INH SCH ×4 (02:16→19:17)
[2018-10-18 05:56] LABS: Hemoglobin 8.4 g/dL (14.0-18.0); Mean Corpuscular Hgb Conc 27.1 g/dL (32-36); Mean Platelet Volume 10.4 fL (7.4-10.4); Platelet Count 373 K/uL (130-400); RDW Coefficient of Variation 15.1 % (11.5-14.5); RDW Standard Deviation 54.4 fL (36.4-46.3); Red Blood Count 3.13 M/uL (4.7-6.1); White Blood Count 9.74 K/uL (4.8-10.8)
[2018-10-18 06:31] LABS: Albumin Level 2.8 gm/dl (3.4-5.0); BUN Creatinine Ratio 18.1 (10-20); Calcium 8.7 mg/dl (8.5-10.1); Creatinine Clr Calc Pharmacy 78.5 ml/min; Est GFR (African American) 56.3; Est GFR (Non-African American) 48.6; Potassium 3.5 mmol/L (3.5-5.1)
[2018-10-18 06:34] LABS: Albumin Globulin Ratio 0.9 (0.9-2); Bilirubin,Total 0.3 mg/dl (0.2-1); Total Protein 5.8 gm/dl (6.4-8.2)
--- NOTE | 2018-10-18 07:55 | Nephrology Progress Note ---
Date of Service October 18, 2018 Assessment & Plan (1) CHF exacerbation: in setting of pickwickian syndrome/ R HF/ diastolic HF -cont to limit sodium and fluid intake per orders -daily bmp -diuretic changes as below -cont strict I/O -cont daily weights -- aim for standing wt which is much more useful here (2) Renal insufficiency: Baseline creatinine in 2019 is 1.2; creat today up to 1.4 from 1.2 yesterday. he is at significant risk for ASHUTOSH and/or worsenign creat given IV contrast on admission and new acei, spironolactone, plus diuresis -ordered uacm -adjusted diuretics to 30 mg q 6h IV and continue vaughn >> same total diuretic but gentler on renal function -will hold ACEI/spironolactone for today and recommend doing so until creatinine stabilizes >> he had no DM and no L systolic heart failure >> recommend stopping ACEI altogether; resume spironolactone when apporpriate -would also ensure this pt never uses nsaids given volume issues and HF Present on Admission?: Yes Subjective growing pseud/proteus/staph from wound. states " I"m here." no real complaints. notes no real change in edema. no change in pbreathing. no abd pain, n/v. no f/c and tolerating po. no chest pain. doing PT w/ effort Physical Exam 2 Vital Signs (Past 24 Hours): Last Vital Signs Temp 37.4 C 10/18/18 03:46 Pulse 74 10/18/18 07:09 Resp 24 10/18/18 07:09 BP 135/67 10/18/18 03:46 Pulse Ox 98 10/18/18 07:09 Constitutional: well developed, + morbidly obese and + edematous sitting in chair on 4L 02nc Eyes: EOM intact bilaterally ENMT: Ears: no external ear abnormality Nose: no external nose abnormality Mouth: + dry oral mucous membranes and + malodorous breath (from across the room notable again today) Neck: no nuchal rigidity Respiratory: normal respiratory effort Auscultation: + diminished lung sounds (markedly) Cardiovascular: Rate/Rhythm: regular rate and regular rhythm Extremities: + edema (4+ edema) Gastrointestinal (Abdomen): Inspection/Auscultation: normal bowel sounds Percussion/Palpation: abdomen soft; abdomen nontender Musculoskeletal: Extremities: strength 5/5 throughout Skin: + turgor decreased and + skin tightening Neurologic: bansal, fluent but limited speech Psychiatric: Affect: + flat affect Insight: + limited insight Genitourinary: vaughn w/ soto urine Results & Data Laboratory Results Abnormal lab results 10/18/18 10/18/18 Range/Units 05:32 05:32 RBC 3.13 L (4.7-6.1) M/uL Hgb 8.4 L (14.0-18.0) g/dL Hct 31.0 L (42-52) % MCHC 27.1 L (32-36) g/dL RDW Std Deviation 54.4 H (36.4-46.3) fL RDW Coeff of Kate 15.1 H (11.5-14.5) % Chloride 97 L (98-107) mmol/L Carbon Dioxide 39 H (21-32) mmol/L BUN 26 H (7-18) mg/dl Creatinine 1.43 H (0.6-1.4) mg/dl AST 9 L (15-37) U/L ALT 10 L (12-78) U/L Total Protein 5.8 L (6.4-8.2) gm/dl Albumin 2.8 L (3.4-5.0) gm/dl _ (1) CHF exacerbation Heart failure type: unspecified Qualified Code(s): I50.9 - Heart failure, unspecified
[2018-10-18] MEDS: PANTOprazole 40 MG TAB PO SCH (08:26)
[2018-10-18] MEDS: MULTIVITAMIN TAB PO SCH (08:26)
[2018-10-18] MEDS: METOPROLOL SUCC 25MG EXT REL TAB PO SCH ×2 (08:26→19:47)
[2018-10-18] MEDS: FERROUS SULFATE 325 MG TAB PO SCH ×2 (08:27→19:46)
[2018-10-18] MEDS: ASPIRIN 81 MG ECTAB PO SCH (08:28)
[2018-10-18] MEDS: COLCHICINE 0.6 MG TAB PO SCH (08:28)
[2018-10-18] MEDS: POTASSIUM CHLORIDE 10 MEQ TABCR PO SCH ×2 (08:28→19:46)
[2018-10-18] MEDS: predniSONE 20 MG TAB PO SCH (08:28)
[2018-10-18] MEDS: ENOXAPARIN INJ 40 MG/0.4 ML SYR SQ SCH (08:29)
--- NOTE | 2018-10-18 08:51 | Hospitalist Progress Note ---
Date of Service October 18, 2018 Assessment & Plan (1) Acute hypoxemic respiratory failure: Acute on chronic Secondary to decompensated heart failure hx diastolic dysfunction (EF 65-70% TTE 2018) 40 lb weight gain following recent confinement from March 2018 Weight down 6 Kg so far Uncontrolled BP, dietary indiscretion, NSAID intake, home steroid Rx contributory to fluid retention chronic respiratory failure secondary to steroid dependent COPD on home O2 CHRISTIE on CPAP Chronic lung disease not in acute exacerbation past tobacco abuse LE cellulitis in the setting of chronic lymphedema, Wound Cx +Staph, Pseudomonas , and Proteus-On cefepime Morbid Obesity BMI 62 Steroid-induced hyperglycemia Functional disability chronic anemia, hemoglobin at baseline RLL Mass on Previous scan 02/2018-[facility] shows RLL Mass is gone Diuretic Rx-Renal eval, Albumin and Lasix Strict IOs, daily weights, CHF education TTE Grade II Diastolic dysfunction, EF 55-60%, Cardiology on case Hold home NSAIDs LE venous Doppler neg for DVT A1c PT OT DVT prophylaxis. Lovenox subcu DNR SNF Sunday Ms. Ina Mullins, contact #[phone]. Updated Step DTR today Subjective 73 yo obese male c PMH of chronic diastolic heart failure (EF 65-70% TTE 2018), chronic respiratory failure secondary to steroid dependent COPD on home O2, CHRISTIE on CPAP, past tobacco abuse, hypertension, PSVT as per records, chronic lymphedema, chronic anemia baseline hemoglobin of 8. Recent confinement February 2018 for COPD exacerbation. Consolidation/possible postobstructive pneumonia noted on imaging during confinement. Patient refused workup bronchoscopic eval. And also found to be at risk for aspiration during confinement. Patient discharged to [facility] subsequently discharged back home. Patient noted worsening shortness of breath, fluid retention, leg swelling/ redness in the last week. Patient denies chest pain. No unusual cough symptoms. Admits to dietary indiscretion. Patient family worried that patient does not move around as much. No fever, no chills. In ER patient given IV Lasix for CHF. ROS-No Headache, No Visual Changes, No Fever, No Chills, No Neck Pain or Stiffness, No Chest Pain, No Palpitations, + SOB, + STEPHENS, No Cough, No Sputum, No Wheezing, No Abdominal Pain, No Diarrhea, No Hematemesis, No Hemoptysis, No Unexpected Weight Loss, No Flank pain, No Melena, No Hematochezia, No Frequency , No Urgency, No Burning, No Hematuria, No Rashes, No Diaphoresis. Appetite is Normal, C/O LE edema Physical Exam Gen-AAO x 3, NAD, Afebrile, Morbidly Obese Head-NCAT, EOMI, PERRLA, Anicteric Sclera, No Posterior Pharyngeal Erythema Neck-Supple, No JVD, No Thyromegaly, No Masses, No LAD, No Bruits Lungs-Clear to Auscultation Bilaterally, No Rales, No Rhonchi, No Wheezing, No Crepitus Chest-No S4, +S1, +S2, No S3, No Murmurs, No Rubs, No Gallops, No Ectopy Abdomen-Soft, Bowel Sounds Present, Non Tender, Non Distended, No Hepatomegaly, No Splenomegaly, No Palpable Masses, No Rebound, No Rigidity, No Guarding Musculoskeletal-Full Range of Motion Bilaterally, No CVAT Extremities-+B/L LE and Foot edema c Less Erythema, improvement from yesterday, Chronic Stasis changes Nuero-Cranial Nerves II-XII grossly intact, Motor WNL, DTRs WNL, Strength WNL, No Focal Psych-Normal Mood Physical Exam 2 Vital Signs (Past 24 Hours): Last Vital Signs Temp 37.2 C 10/18/18 07:49 Pulse 79 10/18/18 07:49 Resp 26 H 10/18/18 07:49 BP 107/86 10/18/18 07:49 Pulse Ox 91 10/18/18 07:49 Results & Data Laboratory Results Current Diagnoses Morbid (severe) obesity with alveolar hypoventilation (10/14/18) Obstructive sleep apnea (adult) (pediatric) (10/14/18) Essential (primary) hypertension (10/14/18) Supraventricular tachycardia (10/14/18) Right heart failure, unspecified (10/14/18) Heart failure, unspecified (10/14/18) Chronic obstructive pulmonary disease, unspecified (10/14/18) Acute respiratory failure with hypoxia (10/14/18) Allergies No Known Allergies Allergy (Verified 10/14/18 21:24) Height/Weight/Isolation Height 5 ft 10 in Weight 187.6 kg Chemistry 10/17/18 10/18/18 06:14 05:32 Sodium 140 141 Potassium 3.5 3.5 Chloride 99 97 L Carbon Dioxide 39 H 39 H Anion Gap 2.0 L 5.0 BUN 21 H 26 H Creatinine 1.19 1.43 H Glucose 95 92 Microbiology 10/14/18 17:00 Leg,Left Gram Stain - Final 10/14/18 17:00 Leg,Left Wound Culture - Final Staphylococcus aureus Proteus mirabilis Pseudomonas aeruginosa
[2018-10-18] MEDS: FUROSEMIDE 30 MG in SYRINGE 0 ML IV SCH ×3 (09:00→19:45)
[2018-10-18 11:00] LABS: Appearance Urine Clear (Clear); Bilirubin Urine Negative (Negative); Blood Urine Negative (Negative); Color Urine Yellow; Glucose Urine UA Negative (Negative); Ketones Urine Negative (Negative); Leukocyte Esterase Urine Negative (Negative); Nitrite Urine Negative (Negative); Protein Urine Negative (Negative); Urobilinogen Urine Negative (Negative); pH Urine 7.5 (4.5-7.5)
--- NOTE | 2018-10-18 11:34 | Cardiology Progress Note ---
Date of Service October 18, 2018 Assessment & Plan (1) Right heart failure: Secondary to pickwickian phenomenon morbid obesity hypoventilation syndrome. Preserved LV systolic function noted Ongoing diuresis will be continued as per nephrology.. Spironolactone on hold though would resume once renal function stabilizes Potassium supplement today Continue to treat underlying etiologies sleep apnea chronic hypoxia morbid obesity (2) Pickwickian syndrome: (3) Renal insufficiency: (4) CHRISTIE (obstructive sleep apnea): Physical Exam 2 Vital Signs (Past 24 Hours): Last Vital Signs Temp 37.2 C 10/18/18 07:49 Pulse 71 10/18/18 08:00 Resp 26 H 10/18/18 07:49 BP 107/86 10/18/18 07:49 Pulse Ox 94 10/18/18 08:54 Physical Exam: Patient is a morbidly obese male sitting out of bed in chair no acute complaints. Vital signs as above HEENT exam is normocephalic and atraumatic, nares without discharge throat generally clear with poor visualization of the uvula Neck very thick no distinct jugular venous distention no audible carotid bruit Lungs markedly diminished breath sounds with poor respiratory flow Cardiovascular exam regular occasional ventricular ectopic beats no audible murmur rub with distant heart sounds Abdomen is soft with moderate distention large panniculus no palpable mass or hepatosplenomegaly. Abdomen less distended slightly today Extremities 2-3 + edema to mid thighs ruborous changes bilateral lower extremities and feet. Distal pulses are palpable leg edema diminished mildly Results & Data Laboratory Results Laboratory Results - last 24 hr 10/18/18 10/18/18 10/18/18 05:32 05:32 09:40 WBC 9.74 RBC 3.13 L Hgb 8.4 L Hct 31.0 L MCV 99.0 MCH 26.8 MCHC 27.1 L RDW Std Deviation 54.4 H RDW Coeff of Kate 15.1 H Plt Count 373 MPV 10.4 Sodium 141 Potassium 3.5 Chloride 97 L Carbon Dioxide 39 H Anion Gap 5.0 BUN 26 H Creatinine 1.43 H Est Cr Clr Drug Dosing 78.5 Est GFR ( Amer) 56.3 Est GFR (Non-Af Amer) 48.6 BUN/Creatinine Ratio 18.1 Glucose 92 Calcium 8.7 Total Bilirubin 0.3 AST 9 L ALT 10 L Alkaline Phosphatase 68 Total Protein 5.8 L Albumin 2.8 L Globulin 3.0 Albumin/Globulin Ratio 0.9 Urine Color Yellow Urine Appearance Clear Urine pH 7.5 Ur Specific [place] 1.010 Urine Protein Negative Urine Glucose (UA) Negative Urine Ketones Negative Urine Blood Negative Urine Nitrite Negative Urine Bilirubin Negative Urine Urobilinogen Negative Ur Leukocyte Esterase Negative
[2018-10-18] MEDS ORDERED: POTASSIUM CHLORIDE 10 MEQ TABCR PO STA (11:41)
[2018-10-19] MEDS: FUROSEMIDE 30 MG in SYRINGE 0 ML IV SCH ×4 (01:02→20:04)
[2018-10-19] MEDS: CEFEPIME 2,000 MG in SYRINGE 7.5 ML IV SCH ×2 (01:02→13:06)
[2018-10-19] MEDS: LEVALBUTEROL 1.25MG/0.5ML NEB INH SCH ×2 (01:57→07:04)
[2018-10-19] MEDS: IPRATROPIUM BROMIDE NEB SOLN 0.02% 2.5 ML VIAL INH SCH ×2 (01:57→07:04)
[2018-10-19 06:48] LABS: Hematocrit (blood only) 33.5 % (42-52); Hemoglobin 9.1 g/dL (14.0-18.0); Mean Corpuscular Hgb Conc 27.2 g/dL (32-36); Mean Corpuscular Volume 99.1 fL (80-100); Mean Platelet Volume 10.2 fL (7.4-10.4); Platelet Count 374 K/uL (130-400); RDW Coefficient of Variation 15.3 % (11.5-14.5); RDW Standard Deviation 54.8 fL (36.4-46.3); Red Blood Count 3.38 M/uL (4.7-6.1); White Blood Count 11.52 K/uL (4.8-10.8)
--- NOTE | 2018-10-19 07:05 | Hospitalist Progress Note ---
Date of Service October 19, 2018 Assessment & Plan (1) Acute hypoxemic respiratory failure: Acute on chronic Secondary to decompensated heart failure hx diastolic dysfunction (EF 65-70% TTE 2018) 40 lb weight gain following recent confinement from March 2018 Weight down 15 Kg so far Uncontrolled BP, dietary indiscretion, NSAID intake, home steroid Rx contributory to fluid retention chronic respiratory failure secondary to steroid dependent COPD, on home O2 CHRISTIE on CPAP Chronic lung disease not in acute exacerbation Past Tobacco Abuse LE cellulitis in the setting of chronic lymphedema, Wound Cx +Staph, Pseudomonas , and Proteus-On cefepime, Markedly improved, DC on Cipro and Omnicef on Saturday 10/21 Morbid Obesity BMI 62 Steroid-induced hyperglycemia Functional disability Chronic Anemia, hemoglobin at baseline RLL Mass on Previous scan 02/2018-[facility] shows RLL Mass is gone Diuretics, Renal on case Strict IOs, daily weights, CHF education TTE Grade II Diastolic dysfunction, EF 55-60%, Cardiology on case Hold home NSAIDs LE venous Doppler neg for DVT A1c 4.7 PT OT DVT prophylaxis. Lovenox subcu DNR SNF Saturday 10/21 Ms. Ina Mullins, contact #[phone]. Step Dtr informed of plan Subjective 73 yo obese male c PMH of chronic diastolic heart failure (EF 65-70% TTE 2018), chronic respiratory failure secondary to steroid dependent COPD on home O2, CHRISTIE on CPAP, past tobacco abuse, hypertension, PSVT as per records, chronic lymphedema, chronic anemia baseline hemoglobin of 8. Recent confinement February 2018 for COPD exacerbation. Consolidation/possible postobstructive pneumonia noted on imaging during confinement. Patient refused workup bronchoscopic eval. And also found to be at risk for aspiration during confinement. Patient discharged to [facility] subsequently discharged back home. Patient noted worsening shortness of breath, fluid retention, leg swelling/ redness in the last week. Patient denies chest pain. No unusual cough symptoms. Admits to dietary indiscretion. Patient family worried that patient does not move around as much. No fever, no chills. In ER patient given IV Lasix for CHF. ROS-No Headache, No Visual Changes, No Fever, No Chills, No Neck Pain or Stiffness, No Chest Pain, No Palpitations, + SOB, + STEPHENS, No Cough, No Sputum, No Wheezing, No Abdominal Pain, No Diarrhea, No Hematemesis, No Hemoptysis, No Unexpected Weight Loss, No Flank pain, No Melena, No Hematochezia, No Frequency , No Urgency, No Burning, No Hematuria, No Rashes, No Diaphoresis. Appetite is Normal, C/O LE edema Walking better, not yet at baseline. Still c considerable disfiguring edema Physical Exam Gen-AAO x 3, NAD, Afebrile, Morbidly Obese Head-NCAT, EOMI, PERRLA, Anicteric Sclera, No Posterior Pharyngeal Erythema Neck-Supple, No JVD, No Thyromegaly, No Masses, No LAD, No Bruits Lungs-Clear to Auscultation Bilaterally, No Rales, No Rhonchi, No Wheezing, No Crepitus Chest-No S4, +S1, +S2, No S3, No Murmurs, No Rubs, No Gallops, No Ectopy Abdomen-Soft, Bowel Sounds Present, Non Tender, Non Distended, No Hepatomegaly, No Splenomegaly, No Palpable Masses, No Rebound, No Rigidity, No Guarding Musculoskeletal-Full Range of Motion Bilaterally, No CVAT Extremities-+B/L LE and Foot edema c Less Erythema, improvement from yesterday, Chronic Stasis changes Nuero-Cranial Nerves II-XII grossly intact, Motor WNL, DTRs WNL, Strength WNL, No Focal Psych-Normal Mood Physical Exam 2 Vital Signs (Past 24 Hours): Last Vital Signs Temp 37.1 C 10/19/18 04:11 Pulse 73 10/19/18 04:11 Resp 16 10/19/18 04:11 BP 157/73 H 10/19/18 04:11 Pulse Ox 98 10/19/18 04:11 Results & Data Laboratory Results Reviewed
[2018-10-19 07:11] LABS: BUN Creatinine Ratio 17.5 (10-20); Calcium 8.7 mg/dl (8.5-10.1); Creatinine Clr Calc Pharmacy 73.6 ml/min; Est GFR (African American) 52.3; Est GFR (Non-African American) 45.1; Potassium 3.7 mmol/L (3.5-5.1)
[2018-10-19 07:14] LABS: Albumin Globulin Ratio 0.9 (0.9-2); Bilirubin,Total 0.3 mg/dl (0.2-1); Globulin 3.3 gm/dl (2.5-4.0); Total Protein 6.3 gm/dl (6.4-8.2)
[2018-10-19] MEDS: METOPROLOL SUCC 25MG EXT REL TAB PO SCH ×2 (07:56→20:05)
[2018-10-19] MEDS: MULTIVITAMIN TAB PO SCH (07:56)
[2018-10-19] MEDS: POTASSIUM CHLORIDE 10 MEQ TABCR PO SCH ×2 (07:56→20:04)
[2018-10-19] MEDS: PANTOprazole 40 MG TAB PO SCH (07:56)
[2018-10-19] MEDS: FERROUS SULFATE 325 MG TAB PO SCH ×2 (07:57→20:04)
[2018-10-19] MEDS: ASPIRIN 81 MG ECTAB PO SCH (07:57)
[2018-10-19] MEDS: ENOXAPARIN INJ 40 MG/0.4 ML SYR SQ SCH (07:58)
[2018-10-19] MEDS: predniSONE 20 MG TAB PO SCH (07:58)
[2018-10-19] MEDS: COLCHICINE 0.6 MG TAB PO SCH (07:59)
--- NOTE | 2018-10-19 10:43 | Cardiology Progress Note ---
Date of Service October 19, 2018 Assessment & Plan (1) Right heart failure: Secondary to pickwickian phenomenon morbid obesity hypoventilation syndrome. Preserved LV systolic function noted continues to diurese, however, output not as significant overnight Ongoing diuresis will be continued as per nephrology.. Spironolactone on hold though would resume once renal function stabilizes Potassium supplement today Continue to treat underlying etiologies sleep apnea chronic hypoxia morbid obesity (2) Pickwickian syndrome: Patient has had gradual decline of several months and greater than 40 pound weight gain. With worsening edema secondary to respiratory issues/ diastolic dysfunction Since initiating diuretic therapy patient's had very brisk diuresis, still remains massively volume overloaded. Weight is down nearly 5 kg. Developing contraction alkalosis. Will supplement potassium to aid in the above hold a.m. furosemide until examined. (3) Renal insufficiency: (4) CHRISTIE (obstructive sleep apnea): Subjective Pt seen and examined, oob in chair, states that he feels about the same. No change in breathing or lower extremity swelling. Denies cp, palpitations, lighteadedness or dizziness. Tele reviewed: sinus rhythm with occasional PVC's and PAC's. Review of Systems All systems reviewed & are unremarkable except as noted in HPI & below Physical Exam 2 Vital Signs (Past 24 Hours): Last Vital Signs Temp 36.7 C 10/19/18 08:17 Pulse 85 10/19/18 08:17 Resp 19 10/19/18 08:17 BP 109/53 L 10/19/18 08:17 Pulse Ox 96 10/19/18 08:17 Physical Exam: Patient is a morbidly obese male sitting out of bed in chair no acute complaints. Vital signs as above HEENT exam is normocephalic and atraumatic, nares without discharge throat generally clear with poor visualization of the uvula Neck very thick no distinct jugular venous distention no audible carotid bruit Lungs markedly diminished breath sounds with poor respiratory flow Cardiovascular exam regular occasional ventricular ectopic beats no audible murmur rub with distant heart sounds Abdomen is soft with moderate distention large panniculus no palpable mass or hepatosplenomegaly. Abdomen less distended slightly today Extremities 2-3 + edema to mid thighs ruborous changes bilateral lower extremities and feet. Distal pulses are palpable leg edema diminished mildly
[2018-10-19] MEDS ORDERED: LEVALBUTEROL 1.25MG/0.5ML NEB NEB PRN (13:04)
[2018-10-19] MEDS ORDERED: IPRATROPIUM BROMIDE NEB SOLN 0.02% 2.5 ML VIAL NEB PRN (13:06)
--- NOTE | 2018-10-19 14:38 | Nephrology Progress Note ---
Date of Service October 19, 2018 Assessment & Plan (1) CHF exacerbation: in setting of diastolic HF -cont to limit sodium and fluid intake per orders -daily bmp -diuretic changes as below -cont strict I/O -cont daily weights - (2) Renal insufficiency: Baseline creatinine in 2019 is 1.2; creat today up to 1.5 from 1.4 yesterday. he is at significant risk for ASHUTOSH and/or worsenign creat given IV contrast on admission plus diuresis -ordered uacm -Continue lasix 30 mg q 6h IV and continue vaughn Subjective growing pseud/proteus/staph from wound. He feels slightly better in terms of breathing. No SOB. Legs still swollen. no abd pain, n/v. no f/c and tolerating po. no chest pain. Review of Systems All systems reviewed & are unremarkable except as noted in HPI & below Physical Exam 2 Vital Signs (Past 24 Hours): Last Vital Signs Temp 36.7 C 10/19/18 11:52 Pulse 73 10/19/18 11:52 Resp 14 10/19/18 11:52 BP 129/60 10/19/18 11:52 Pulse Ox 96 10/19/18 11:52 Physical Exam: General exam: Appears comfortable, no acute distress. sitting up in chair HEENT: Pupils are equal and reactive to light Neck: No JVD, neck is supple trachea is midline Respiratory system: Clear breath sounds bilaterally. Gastrointestinal: Abdomen is soft, non distended, non tender, bowel sounds are present CVS: Regular rate and rhythm. No murmurs, rubs or gallops Musculoskeletal: No joint or muscle tenderness Extremities: Non tender, 3+ edema, peripheral pulses are present Neuro: Oriented, no tremors, no focal neurological deficits Skin: open areas on the legs Results & Data Laboratory Results reviewed, k 3.7 cr 1.5 _ (1) CHF exacerbation Heart failure type: unspecified Qualified Code(s): I50.9 - Heart failure, unspecified
[2018-10-20] MEDS: CEFEPIME 2,000 MG in SYRINGE 7.5 ML IV SCH ×2 (02:13→13:42)
[2018-10-20] MEDS: FUROSEMIDE 30 MG in SYRINGE 0 ML IV SCH ×4 (02:13→22:07)
[2018-10-20 07:21] LABS: Hematocrit (blood only) 33.2 % (42-52); Mean Corpuscular Hgb Conc 27.1 g/dL (32-36); Mean Corpuscular Volume 99.7 fL (80-100); Mean Platelet Volume 10.4 fL (7.4-10.4); Platelet Count 378 K/uL (130-400); RDW Coefficient of Variation 15.4 % (11.5-14.5); RDW Standard Deviation 55.6 fL (36.4-46.3); Red Blood Count 3.33 M/uL (4.7-6.1)
[2018-10-20 07:41] LABS: Albumin Globulin Ratio 0.9 (0.9-2); Albumin Level 2.9 gm/dl (3.4-5.0); BUN Creatinine Ratio 21.2 (10-20); Bilirubin,Total 0.3 mg/dl (0.2-1); Calcium 8.9 mg/dl (8.5-10.1); Creatinine Clr Calc Pharmacy 82.3 ml/min; Est GFR (African American) 59.8; Est GFR (Non-African American) 51.6; Globulin 3.2 gm/dl (2.5-4.0); Potassium 3.5 mmol/L (3.5-5.1); Total Protein 6.1 gm/dl (6.4-8.2)
[2018-10-20] MEDS: MULTIVITAMIN TAB PO SCH (08:20)
[2018-10-20] MEDS: ASPIRIN 81 MG ECTAB PO SCH (08:20)
[2018-10-20] MEDS: METOPROLOL SUCC 25MG EXT REL TAB PO SCH ×2 (08:20→22:07)
[2018-10-20] MEDS: COLCHICINE 0.6 MG TAB PO SCH (08:20)
[2018-10-20] MEDS: PANTOprazole 40 MG TAB PO SCH (08:20)
[2018-10-20] MEDS: predniSONE 20 MG TAB PO SCH (08:21)
[2018-10-20] MEDS: FERROUS SULFATE 325 MG TAB PO SCH ×2 (08:21→22:07)
[2018-10-20] MEDS: POTASSIUM CHLORIDE 10 MEQ TABCR PO SCH ×2 (08:21→22:07)
[2018-10-20] MEDS: ENOXAPARIN INJ 40 MG/0.4 ML SYR SQ SCH (08:21)
--- NOTE | 2018-10-20 09:04 | Hospitalist Progress Note ---
Date of Service October 20, 2018 Assessment & Plan (1) Acute hypoxemic respiratory failure: Acute on chronic Secondary to decompensated heart failure hx diastolic dysfunction (EF 65-70% TTE 2018) 40 lb weight gain following recent confinement from March 2018 Weight still down 15 Kg so far Uncontrolled BP, dietary indiscretion, NSAID intake, home steroid Rx contributory to fluid retention chronic respiratory failure secondary to steroid dependent COPD, on home O2 CHRISTIE on CPAP Chronic lung disease not in acute exacerbation Past Tobacco Abuse LE cellulitis in the setting of chronic lymphedema, Wound Cx +Staph, Pseudomonas , and Proteus-On cefepime, Markedly improved, DC on Cipro and Omnicef on Saturday 10/21 Morbid Obesity BMI 62 Steroid-induced hyperglycemia Functional disability Chronic Anemia, hemoglobin at baseline RLL Mass on Previous scan 02/2018-[facility] shows RLL Mass is gone Diuretics, Renal on case Strict IOs, daily weights, CHF education TTE Grade II Diastolic dysfunction, EF 55-60%, Cardiology on case Hold home NSAIDs LE venous Doppler neg for DVT A1c 4.7 PT OT DVT prophylaxis. Lovenox subcu DNR SNF Saturday 10/21 Ms. Ina Mullins, contact #[phone]. Step Dtr informed of plan Subjective 73 yo obese male c PMH of chronic diastolic heart failure (EF 65-70% TTE 2018), chronic respiratory failure secondary to steroid dependent COPD on home O2, CHRISTIE on CPAP, past tobacco abuse, hypertension, PSVT as per records, chronic lymphedema, chronic anemia baseline hemoglobin of 8. Recent confinement February 2018 for COPD exacerbation. Consolidation/possible postobstructive pneumonia noted on imaging during confinement. Patient refused workup bronchoscopic eval. And also found to be at risk for aspiration during confinement. Patient discharged to [facility] subsequently discharged back home. Patient noted worsening shortness of breath, fluid retention, leg swelling/ redness in the last week. Patient denies chest pain. No unusual cough symptoms. Admits to dietary indiscretion. Patient family worried that patient does not move around as much. No fever, no chills. In ER patient given IV Lasix for CHF. ROS-No Headache, No Visual Changes, No Fever, No Chills, No Neck Pain or Stiffness, No Chest Pain, No Palpitations, + SOB, + STEPHENS, No Cough, No Sputum, No Wheezing, No Abdominal Pain, No Diarrhea, No Hematemesis, No Hemoptysis, No Unexpected Weight Loss, No Flank pain, No Melena, No Hematochezia, No Frequency , No Urgency, No Burning, No Hematuria, No Rashes, No Diaphoresis. Appetite is Normal, C/O LE edema Walking better, not yet at baseline. Still c considerable disfiguring edema, overall improving Physical Exam Gen-AAO x 3, NAD, Afebrile, Morbidly Obese Head-NCAT, EOMI, PERRLA, Anicteric Sclera, No Posterior Pharyngeal Erythema Neck-Supple, No JVD, No Thyromegaly, No Masses, No LAD, No Bruits Lungs-Clear to Auscultation Bilaterally, No Rales, No Rhonchi, No Wheezing, No Crepitus Chest-No S4, +S1, +S2, No S3, No Murmurs, No Rubs, No Gallops, No Ectopy Abdomen-Soft, Bowel Sounds Present, Non Tender, Non Distended, No Hepatomegaly, No Splenomegaly, No Palpable Masses, No Rebound, No Rigidity, No Guarding Musculoskeletal-Full Range of Motion Bilaterally, No CVAT Extremities-+B/L LE and Foot edema c Less Erythema, Vast improvement in the last 2 days, Chronic Stasis changes Nuero-Cranial Nerves II-XII grossly intact, Motor WNL, DTRs WNL, Strength WNL, No Focal Psych-Normal Mood Physical Exam 2 Vital Signs (Past 24 Hours): Last Vital Signs Temp 36.6 C 10/20/18 07:31 Pulse 73 10/20/18 07:31 Resp 22 10/20/18 07:31 BP 152/83 H 10/20/18 07:31 Pulse Ox 99 10/20/18 07:31 Results & Data Laboratory Results Current Diagnoses Morbid (severe) obesity with alveolar hypoventilation (10/14/18) Obstructive sleep apnea (adult) (pediatric) (10/14/18) Essential (primary) hypertension (10/14/18) Supraventricular tachycardia (10/14/18) Right heart failure, unspecified (10/14/18) Heart failure, unspecified (10/14/18) Chronic obstructive pulmonary disease, unspecified (10/14/18) Acute respiratory failure with hypoxia (10/14/18) Disorder of kidney and ureter, unspecified (10/14/18) Allergies No Known Allergies Allergy (Verified 10/14/18 21:24) Height/Weight/Isolation Height 5 ft 10 in Weight 186.8 kg Chemistry 10/19/18 10/20/18 06:21 06:37 Sodium 140 140 Potassium 3.7 3.5 Chloride 97 L 96 L Carbon Dioxide 39 H 41 H* Anion Gap 4.0 4.0 BUN 27 H 29 H Creatinine 1.52 H 1.36 Glucose 107 H 95 Urinalysis 10/18/18 09:40 Urine Color Yellow Urine Appearance Clear Urine pH 7.5 Ur Specific [place] 1.010 Urine Protein Negative Urine Glucose (UA) Negative Urine Ketones Negative Urine Blood Negative Urine Nitrite Negative Urine Bilirubin Negative
--- NOTE | 2018-10-20 10:13 | Cardiology Progress Note ---
Date of Service October 20, 2018 Assessment & Plan (1) Right heart failure: Secondary to pickwickian phenomenon morbid obesity hypoventilation syndrome. Preserved LV systolic function noted continues to diurese, increased diuresis overnight renal function continues to improve Ongoing diuresis will be continued as per nephrology.. Spironolactone on hold though would resume once renal function stabilizes Potassium supplement today Continue to treat underlying etiologies sleep apnea chronic hypoxia morbid obesity ok to d/c tele from cardiac standpoint and continue diuresis (2) Pickwickian syndrome: Patient has had gradual decline of several months and greater than 40 pound weight gain. With worsening edema secondary to respiratory issues/ diastolic dysfunction Since initiating diuretic therapy patient's had very brisk diuresis, still remains massively volume overloaded. Weight is down nearly 5 kg. Developing contraction alkalosis. Will supplement potassium to aid in the above hold a.m. furosemide until examined. (3) Renal insufficiency: (4) CHRISTIE (obstructive sleep apnea): Subjective Pt seen and examined, oob in chair, refusing to elevate legs. Denies cp, palpitations, lightheadedness or dizziness. Pt states that he's getting aggravated with being in the hospital, when told he is still profoundly volume overloaded, he disagreed. tele reviewed: sinus rhythm with occasional ectopy, no sustained arrhythmias. Review of Systems All systems reviewed & are unremarkable except as noted in HPI & below Physical Exam 2 Vital Signs (Past 24 Hours): Last Vital Signs Temp 36.6 C 10/20/18 07:31 Pulse 74 10/20/18 09:32 Resp 22 10/20/18 07:31 BP 152/83 H 10/20/18 07:31 Pulse Ox 99 10/20/18 07:31 Physical Exam: Patient is a morbidly obese male sitting out of bed in chair no acute complaints. Vital signs as above HEENT exam is normocephalic and atraumatic, nares without discharge throat generally clear with poor visualization of the uvula Neck very thick no distinct jugular venous distention no audible carotid bruit Lungs markedly diminished breath sounds with poor respiratory flow Cardiovascular exam regular occasional ventricular ectopic beats no audible murmur rub with distant heart sounds Abdomen is soft with moderate distention large panniculus no palpable mass or hepatosplenomegaly. Abdomen less distended slightly today Extremities 2-3 + edema to mid thighs ruborous changes bilateral lower extremities and feet. Distal pulses are palpable leg edema diminished mildly
--- NOTE | 2018-10-20 15:24 | Nephrology Progress Note ---
Date of Service October 20, 2018 Assessment & Plan (1) CHF exacerbation: in setting of diastolic HF. Diuressing well. Oxygenation now at baseline. -cont to limit sodium and fluid intake per orders -daily bmp -diuresis with lasix -cont strict I/O -cont daily weights - (2) Renal insufficiency: Baseline creatinine in 2019 is 1.2; creat down trending to 1.36 today from 1.5 yesterday. He is at significant risk for ASHUTOSH given IV contrast on admission plus diuresis -Continue lasix 30 mg q 6h IV and continue vaughn. Will likely reduce dose of lasix to 40mg iv bid from tomorrow. Subjective Patient seen for ASHUTOSH, bacteremia and volume overload. Legs are about the same. HE does not want to elevate the legs. Urine output is good. No worsening SOB Review of Systems All systems reviewed & are unremarkable except as noted in HPI & below Physical Exam 2 Vital Signs (Past 24 Hours): Last Vital Signs Temp 37.2 C 10/20/18 11:31 Pulse 70 10/20/18 11:31 Resp 17 10/20/18 11:31 BP 126/66 10/20/18 11:31 Pulse Ox 94 10/20/18 11:31 Physical Exam: General exam: Obese male, sitting up in chair. Appears comfortable, no acute distress HEENT: Pupils are equal and reactive to light Neck: No JVD, neck is supple trachea is midline Respiratory system: Clear breath sounds bilaterally. Gastrointestinal: Abdomen is soft, non distended, non tender, bowel sounds are present CVS: Regular rate and rhythm. No murmurs, rubs or gallops Musculoskeletal: No joint or muscle tenderness Extremities: Non tender, 3+ edema, peripheral pulses are present Neuro: Oriented, no tremors, no focal neurological deficits Skin: open areas ont he legs Results & Data Laboratory Results cr 1.36, k 3.5, bicarb 41 _ (1) CHF exacerbation Heart failure type: unspecified Qualified Code(s): I50.9 - Heart failure, unspecified
[2018-10-21] MEDS: FUROSEMIDE 30 MG in SYRINGE 0 ML IV SCH ×4 (03:01→20:41)
[2018-10-21] MEDS: CEFEPIME 2,000 MG in SYRINGE 7.5 ML IV SCH ×2 (03:02→14:14)
[2018-10-21 05:56] LABS: Hemoglobin 9.8 g/dL (14.0-18.0); Mean Corpuscular Hgb Conc 27.2 g/dL (32-36); Mean Corpuscular Volume 100.3 fL (80-100); Mean Platelet Volume 10.6 fL (7.4-10.4); Platelet Count 339 K/uL (130-400); RDW Coefficient of Variation 15.4 % (11.5-14.5); RDW Standard Deviation 55.7 fL (36.4-46.3); Red Blood Count 3.59 M/uL (4.7-6.1)
[2018-10-21 06:23] LABS: BUN Creatinine Ratio 22.1 (10-20); Calcium 9.1 mg/dl (8.5-10.1); Creatinine Clr Calc Pharmacy 76.1 ml/min; Est GFR (African American) 54.5; Potassium 3.8 mmol/L (3.5-5.1)
[2018-10-21] MEDS: COLCHICINE 0.6 MG TAB PO SCH (08:05)
[2018-10-21] MEDS: FERROUS SULFATE 325 MG TAB PO SCH ×2 (08:05→20:41)
[2018-10-21] MEDS: ASPIRIN 81 MG ECTAB PO SCH (08:05)
[2018-10-21] MEDS: PANTOprazole 40 MG TAB PO SCH (08:05)
[2018-10-21] MEDS: METOPROLOL SUCC 25MG EXT REL TAB PO SCH ×2 (08:05→20:41)
[2018-10-21] MEDS: MULTIVITAMIN TAB PO SCH (08:05)
[2018-10-21] MEDS: ENOXAPARIN INJ 40 MG/0.4 ML SYR SQ SCH (08:06)
[2018-10-21] MEDS: POTASSIUM CHLORIDE 10 MEQ TABCR PO SCH ×2 (08:06→20:41)
[2018-10-21] MEDS: predniSONE 20 MG TAB PO SCH (08:06)
--- NOTE | 2018-10-21 10:17 | Discharge Summary ---
Date of Service October 21, 2018 Admission HPI Per Admitting Provider Medical history significant for chronic diastolic heart failure as per PCP records (EF 65-70% TTE 2018), chronic respiratory failure secondary to steroid dependent COPD on home O2, CHRISTIE on CPAP, past tobacco abuse, hypertension, PSVT as per records, chronic lymphedema, chronic anemia baseline hemoglobin of 8. Recent confinement February 2018 for COPD exacerbation. Consolidation/possible postobstructive pneumonia noted on imaging during confinement. Patient refused workup bronchoscopic eval. And also found to be at risk for aspiration during confinement. Patient discharged to [facility] subsequently discharged back home. Patient noted worsening shortness of breath, fluid retention, leg swelling/ redness in the last week. Patient denies chest pain. No unusual cough symptoms. Admits to dietary indiscretion. Patient family worried that patient does not move around as much. No fever, no chills. At the ER, patient given IV Lasix for CHF. Admission Exam Per Admitting Provider GENERAL: Obese, uncomfortable, minimal respiratory distress, unkempt SKIN: Pallor , warm HEENT: Pale palpebral conjunctivae, no ptosis, dry buccal mucosa NECK : Supple, short no tenderness CHEST : Decreased breath sounds, no tenderness HEART : RRR, no obvious murmurs ABDOMEN: distention, nontender EXTREMITIES : dani LE swelling/induration, minimal LE tenderness, no other conspicuous deformities noted NEUROLOGIC : Coherent, no facial asymmetry, no other gross focality Principal Diagnosis 1 Acute hypoxemic respiratory failure: Acute on chronic 2 Acute on Chronic Diastolic dysfunction (EF 65-70% TTE 2018)-40 lb weight gain following recent confinement from March 2018 3 HTN, dietary indiscretion, NSAID intake, home steroid Rx contributory to fluid retention 4 Chronic respiratory failure secondary to steroid dependent COPD, on home O2 5 CHRISTIE on CPAP 6 Chronic lung disease not in acute exacerbation 7 Past Tobacco Abuse 8 LE cellulitis in the setting of chronic lymphedema, Wound Cx +Staph, Pseudomonas, and Proteus-On cefepime, DC on Cipro and Omnicef today 9 Morbid Obesity BMI 62 10 Steroid-induced hyperglycemia 11 Functional disability 12 Chronic Anemia, hemoglobin at baseline 13 RLL Mass on Previous scan 02/2018-[facility] shows RLL Mass is gone Discharge Exam ROS-No Headache, No Visual Changes, No Fever, No Chills, No Neck Pain or Stiffness, No Chest Pain, No Palpitations, + SOB, + STEPHENS, No Cough, No Sputum, No Wheezing, No Abdominal Pain, No Diarrhea, No Hematemesis, No Hemoptysis, No Unexpected Weight Loss, No Flank pain, No Melena, No Hematochezia, No Frequency , No Urgency, No Burning, No Hematuria, No Rashes, No Diaphoresis. Appetite is Normal, C/O LE edema Walking better, not yet at baseline. Still c considerable disfiguring edema, overall improving Physical Exam Gen-AAO x 3, NAD, Afebrile, Morbidly Obese Head-NCAT, EOMI, PERRLA, Anicteric Sclera, No Posterior Pharyngeal Erythema Neck-Supple, No JVD, No Thyromegaly, No Masses, No LAD, No Bruits Lungs-Clear to Auscultation Bilaterally, No Rales, No Rhonchi, No Wheezing, No Crepitus Chest-No S4, +S1, +S2, No S3, No Murmurs, No Rubs, No Gallops, No Ectopy Abdomen-Soft, Bowel Sounds Present, Non Tender, Non Distended, No Hepatomegaly, No Splenomegaly, No Palpable Masses, No Rebound, No Rigidity, No Guarding Musculoskeletal-Full Range of Motion Bilaterally, No CVAT Extremities-+B/L LE and Foot edema c Less Erythema, Vast improvement in the last 2 days, Chronic Stasis changes Nuero-Cranial Nerves II-XII grossly intact, Motor WNL, DTRs WNL, Strength WNL, No Focal Psych-Normal Mood Discharge Data Allergies Allergy/AdvReac Type Severity Reaction Status Date / Time No Known Allergies Allergy Verified 10/14/18 21:24 Consultations 10/14/18 20:03 ED Decision to Admit Stat 10/14/18 23:36 Consult Cardiology Routine Consult Case Management - Discharge Planning Routine 10/17/18 07:05 Consult Nephrology Routine Ordered Studies 10/14/18 23:36 US venous doppler LE BI Urgent 10/15/18 12:45 CT chest w con Routine Hospital Course (1) Acute hypoxemic respiratory failure: Acute on chronic Secondary to decompensated heart failure hx diastolic dysfunction (EF 65-70% TTE 2018) 40 lb weight gain following recent confinement from March 2018 Weight down close to baseline Uncontrolled BP, dietary indiscretion, NSAID intake, home steroid Rx contributory to fluid retention chronic respiratory failure secondary to steroid dependent COPD, on home O2 CHRISTIE on CPAP Chronic lung disease not in acute exacerbation Past Tobacco Abuse LE cellulitis in the setting of chronic lymphedema, Wound Cx +Staph, Pseudomonas , and Proteus-On cefepime, Markedly improved, DC on Cipro and Omnicef today Morbid Obesity BMI 62 Steroid-induced hyperglycemia Functional disability Chronic Anemia, hemoglobin at baseline RLL Mass on Previous scan 02/2018-[facility] shows RLL Mass is gone TTE Grade II Diastolic dysfunction, EF 55-60%, Cardiology on case Hold home NSAIDs LE venous Doppler neg for DVT A1c 4.7 DVT prophylaxis. Lovenox subcu DNR SNF Today Patient was on 30 mg of Lasix IV every 6 for several days until he got the majority of his water weight off. He was on IV antibiotics for his cellulitis and will be discharged on Omnicef and Cipro for 10 more days. Otherwise patient had a relatively benign hospital course and just required gentle diuretics for prolonged period time. Ms. Ina Mullins, contact #[phone]. Step Dtr informed of plan Total Time Total Time Spent Total Time Spent (In Minutes): 55 mins Total Time Includes: Examination of the Patient, Discharge Planning, Medication Reconciliation and Communication With Other Providers Discharge Plan Discharge Items Patient Disposition: Transfer Intermediate Fac Reason For Visit: RESP FAILURE Discharge Diagnosis: 1 Acute hypoxemic respiratory failure: Acute on chronic 2 Acute on Chronic Diastolic dysfunction (EF 65-70% TTE 2018)-40 lb weight gain following recent confinement from March 2018 3 HTN, dietary indiscretion, NSAID intake, home steroid Rx contributory to fluid retention 4 Chronic respiratory failure secondary to steroid dependent COPD, on home O2 5 CHRISTIE on CPAP 6 Chronic lung disease not in acute exacerbation 7 Past Tobacco Abuse 8 LE cellulitis in the setting of chronic lymphedema, Wound Cx +Staph, Pseudomonas, and Proteus-On cefepime, DC on Cipro and Omnicef today 9 Morbid Obesity BMI 62 10 Steroid-induced hyperglycemia 11 Functional disability 12 Chronic Anemia, hemoglobin at baseline 13 RLL Mass on Previous scan 02/2018-[facility] shows RLL Mass is gone Condition: Fair Discharge Goals: Improve function and Improve nutritional status Activity: Resume your previous activity Lifting: None Bathing: No limitations Sexual Activity: When tolerated Exercise/Sports: None and As tolerated Driving/Machine Use: No limitations Weightbearing: Left weightbearing and Right weightbearing Non-emergency contact: Primary Care Provider Call non-emergency contact if: you have any medication questions Follow-up/Referrals: Jabari Keane DO [Physician] - (Call for first opening) Diann Cm MD, PhD [Physician] - (Call for first opening) Mckinley Zelaya [Primary Care Provider] - (Call for first Opening) Diet: Heart Healthy and Low Sodium (2gm) Fluids: 1200ml (5 cups) Addtl Provider Instructions: Monitor Weight, Edema in legs, Cellulitis monitoring B/L LEs Prescriptions: New ciprofloxacin HCl [Cipro] 500 mg tablet 500 mg PO BID Qty: 20 RF: 0 cefdinir 300 mg capsule 300 mg PO BID 10 Days Qty: 20 RF: 0 ipratropium bromide 0.02 % Solution 0.5 mg NEB Q4 PRN (Reason: shortness of breath or wheezing) Qty: 30 RF: 0 enoxaparin 40 mg/0.4 mL Syringe 40 mg subcut QAM Qty: 30 RF: 0 levalbuterol HCl 1.25 mg/0.5 mL Solution For Nebulization 1.25 mg NEB Q4 PRN (Reason: shortness of breath or wheezing) Qty: 30 RF: 0 captopril 25 mg Tablet 12.5 mg PO TID Qty: 30 RF: 0 nitroglycerin [Nitrostat] 0.4 mg Tablet, Sublingual 0.4 mg Sublingual UD PRN (Reason: chest pain) Qty: 30 RF: 0 metoprolol succinate 25 mg Tablet Extended Release 24 Hr 75 mg PO BID Qty: 90 RF: 0 miconazole nitrate [Desenex] 2 % Powder 1 applic EXT PRN PRN (Reason: Skin inflammation) Qty: 30 RF: 0 spironolactone 25 mg Tablet 25 mg PO QAM Qty: 30 RF: 0 potassium chloride [Klor-Con M10] 10 mEq Tablet,Er Particles/Crystals 10 meq PO BID Qty: 60 RF: 0 Continue albuterol sulfate 2.5 mg /3 mL (0.083 %) solution for nebulization 3 ml Continuous Nebulization Q4H PRN (Reason: Wheezing) RF: 0 aspirin [Aspir-81] 81 mg Tablet,Delayed Release (Dr/Ec) 81 mg PO DAILY RF: 0 multivitamin [Multiple Vitamins] Tablet 1 tab PO DAILY RF: 0 ranitidine HCl 150 mg Tablet 150 mg PO BID RF: 0 colchicine 0.6 mg tablet 0.6 mg PO DAILY RF: 0 omeprazole 40 mg capsule,delayed release(DR/EC) 40 mg PO DAILY RF: 0 prednisone 20 mg tablet 20 mg PO DAILY RF: 0 ferrous sulfate 325 mg (65 mg iron) tablet 325 mg PO BID RF: 0 Discontinued tramadol 50 mg tablet 50 mg PO Q6H PRN (Reason: Pain) RF: 0 guaifenesin 600 mg Tablet Extended Release 12hr 600 mg PO Q12H RF: 0 tiotropium bromide [Spiriva with HandiHaler] 18 mcg capsule, w/inhalation device 1 cap Inhalation DAILY RF: 0 metoprolol tartrate 50 mg Tablet 50 mg PO BID RF: 0 furosemide 20 mg Tablet 20 mg PO BID RF: 0 captopril 25 mg tablet 25 mg PO TID RF: 0 diclofenac sodium 75 mg tablet,delayed release (DR/EC) 75 mg PO BID PRN (Reason: Pain) RF: 0 Stand-Alone Forms: [facility] Discharge Orders: Discharge Order (Routine); Ordered 10/21/18 Ordered By: Bob Campuzano Skilled Items Patient informed of condition?: Yes DNR: Yes Discharge Level of Care: Skilled Communicable Disease: No Discharge Prognosis: Improving Admission Data Admit Date/Time: 10/14/18 21:57 Attending Provider: Bob Campuzano Admit Provider: Aaron Martinez Primary Care Provider: Mckinley Zelaya Other Providers: Aaron Martinez ; Jabari Keane ; Woody Fernandez ; Delgado Prado ; Dimas Sterling ; HernanAj buchanan ; Jose Lion ; Genie Florentino ; Neelam Bagley ; Diann Cm Service: Telemetry Other Pending Studies at Discharge: No
--- NOTE | 2018-10-21 15:26 | Nephrology Progress Note ---
Date of Service October 21, 2018 Assessment & Plan (1) CHF exacerbation: Pateitn with CHF in setting of diastolic HF. Diuressing well. Oxygenation now at baseline. -cont to limit sodium and fluid intake per orders -daily bmp -diuresis with lasix, change to po lasix. -cont strict I/O -cont daily weights (2) Renal insufficiency: Baseline creatinine in 2019 is 1.2; creat stable at 1.47 today from 1.3 yesterday. He is at significant risk for ASHUTOSH given IV contrast on admission plus diuresis -Reduce dose of lasix to 80mg po bid today if being discharged. Can discharge vaughn catheter and make sure he is voiding before d/c He will need renal f/u in 3-4 weeks Subjective Patient seen for ASHUTOSH, bacteremia and volume overload. Legs are about the same. He does not want to elevate the legs. Urine output is good. No worsening SOB. He was able to get out of bed to chair with assistance. Constitutional: + weakness Respiratory: + dyspnea and + snoring Cardiovascular: + dyspnea on exertion Gastrointestinal: no abdominal pain and no vomiting has vaughn morbid obesity Physical Exam 2 Vital Signs (Past 24 Hours): Last Vital Signs Temp 37.0 C 10/21/18 12:10 Pulse 70 10/21/18 12:10 Resp 16 10/21/18 12:10 BP 123/64 10/21/18 12:10 Pulse Ox 96 10/21/18 12:10 Physical Exam: General exam: Morbidly obese, Appears comfortable, no acute distress HEENT: Pupils are equal and reactive to light Neck: No JVD, neck is supple trachea is midline Respiratory system: Clear breath sounds bilaterally. Gastrointestinal: Abdomen is soft, non distended, non tender, bowel sounds are present CVS: Regular rate and rhythm. No murmurs, rubs or gallops Musculoskeletal: No joint or muscle tenderness Extremities: Non tender, no edema, peripheral pulses are present Neuro: Oriented, no tremors, no focal neurological deficits Skin: No rashes Results & Data Laboratory Results cr 1.47, k 3.8 _ (1) CHF exacerbation Heart failure type: unspecified Qualified Code(s): I50.9 - Heart failure, unspecified
[2018-10-21 20:01] VITALS: BP 133/77; TEMP 98.2; O2SAT 97
[2018-10-21 21:08] VITALS: PULSE 68
== END 2018-10-21 22:05 | DRG 291 ==
LOC: ED 17:06 → 2E 21:57